=== PATIENT | male | born 1935 | race Caucasian/White ===

== ENCOUNTER 2016-09-28 18:21 | Inpatient (IN) ==
[2016-09-28 19:52] LABS: Basophils % 0.2 %; Hematocrit 34.3 % (37.5-50.1); Hemoglobin 11.6 g/dL (12.9-16.9); Immature Granulocytes % 0.4 % (0-4); Lymphocytes # 0.4 K/mcL (0.6-4.6); Lymphocytes % 4.5 %; Mean Corpuscular HGB Conc 33.8 g/dL (31.6-35.5); Mean Corpuscular Hemoglobin 28.7 pg (28.0-33.3); Mean Corpuscular Volume 84.9 fL (83.0-100.0); Mean Platelet Volume 9.5 fL (9.4-12.4); Monocytes # 0.8 K/mcL (0.0-1.3); Monocytes % 9.7 %; Neutrophils # 6.9 K/mcL (1.6-8.9); Platelet Count 124 K/mcL (140-400); Red Blood Count 4.04 M/mcL (4.19-5.50); Segmented Neutrophils % 85.2 %
[2016-09-28 20:07] LABS: Albumin 2.9 g/dL (3.5-5.0); Albumin/Globulin Ratio 0.9 (1.1-2.2); Bilirubin,Direct 0.4 mg/dL (0.0-0.5); Bilirubin,Indirect 0.4 mg/dL (0.0-1.2); Bilirubin,Total 0.8 mg/dL (0.2-1.2); Calcium 8.5 mg/dL (8.6-10.8); Globulin 3.2 g/dL (2.4-3.5); Potassium 3.9 mEq/L (3.5-4.5); Total Protein 6.1 g/dL (6.0-8.3)
[2016-09-28] MEDS ORDERED: Ondansetron 4 MG/2 ML VIAL IVP ONE (20:11)
[2016-09-28 21:41] LABS: Bilirubin,Urine Small (Negative); Blood,Urine Negative (Negative); Clarity,Urine Clear (Clear); Color,Urine Dark Yellow (Yellow); Glucose,Urine (UA) Normal (Normal); Ketones,Urine Trace mg/dL (Negative); Leukocyte Esterase,Urine Negative (Negative); Nitrite,Urine Negative (Negative); PH,Urine 5.5 pH Units (5.0-8.0); Protein,Urine Trace mg/dL (Neg-Trace); Specific Gravity,Urine > 1.030 (1.010-1.025); Urobilinogen,Urine Normal (Normal)
[2016-09-28 21:42] LABS: Bacteria,Urine None Seen per hpf (None-Few); Hyaline Casts,Urine None Seen per lpf (None-Few); Squamous Epithelial Cell,Urine Many per lpf (None-Few); WBC,Urine 0-3 per hpf (0-3)
[2016-09-28] MEDS ORDERED: 0.9 % Sodium Chloride 1,000 ML IVC SCH ×2 (22:30)
--- NOTE | 2016-09-28 22:59 | Emergency Department Note ---
Disposition Clinical Impression: Small bowel obstruction Disposition: Admitted As Inpatient Condition: Good Referrals: Jerel Mallory DO [Primary Care Provider] - Forms: Work/School Release, ED Satisfaction Letter Abdominal Pain HPI - General Chief Complaint: ED Abdominal Pain Stated Complaint: kidney pain Time Seen by Provider: 09/28/16 19:29 Source: patient, family Nursing Notes Reviewed: Yes Vital Signs Reviewed: Yes - History of Present Illness HPI Narrative: 72-year-old male who presents with complaints of abdominal pain. He actually was seen at [facility] 2 days ago and diagnosed with a kidney stone. His CT findings then showed concerning findings for ileus. He does provide me a copy of his CT imaging results from that hospital. This was a noncontrast study and is given strict recheck and return precautions. He is having increasing abdominal pain. History of previous bowel obstruction. He did have a small bowel resection approximately 20 years ago completed here at [place]. He denies fever, chills. Admits to reduce all movements recently. No vomiting but does have anorexia. Pain Scale: 5 - Related Data Home Medications Medication Instructions Recorded Confirmed Lisinopril [Zestril] 5 mg PO DAILY 09/28/16 09/28/16 Ondansetron HCl [Zofran] 4 mg PO Q4H PRN 09/28/16 09/28/16 Oxycodone HCl/Acetaminophen 1 each PO Q4H PRN 09/28/16 09/28/16 [Percocet 5-325 mg Tablet] Tamsulosin [Flomax] 0.4 mg PO DAILY 09/28/16 09/28/16 Vit C/Vit E/Lutein/Min/[place]-3 1 each PO DAILY 09/28/16 09/28/16 [Ocuvite Softgel] Allergies Allergy/AdvReac Type Severity Reaction Status Date / Time No Known Allergies Allergy Verified 09/28/16 18:53 All systems ED: reviewed and negative except as stated. Abdominal Pain PMH - Past Medical History Medical history: Reports: hypertension Male Surgical History: Reports: appendectomy Psychiatric history: Reports: no psych history - Social History Smoking status: Former smoker Alcohol use: Reports: none Drug use: Reports: none Physical Exam No acute distress TMs are clear bilaterally, extraocular muscle movements are normal, no scleral icterus noted Cardio vascular exam shows regular rate and rhythm no murmur rub or gallop Pulmonary exam shows no overt respiratory distress, tachypnea, rales, rhonchi, wheezing Abdominal exam shows a soft nontender abdomen with no signs of peritonitis Extremities show +2 peripheral pulses 4 extremities, normal neurovascular exam over the radian, median, ulnar nerves. Neurologic exam is without neurological deficit - General Limitations: no limitations General appearance: alert, in no apparent distress Course Vital Signs Temperature 97.6 F 09/28/16 18:48 Pulse Rate 101 09/28/16 18:48 Respiratory Rate 17 09/28/16 18:48 Blood Pressure 90/61 09/28/16 18:48 O2 Sat by Pulse Oximetry 87 L 09/28/16 18:48 Temperature 97.6 F 09/28/16 18:48 Pulse Rate 101 09/28/16 18:48 Respiratory Rate 17 09/28/16 18:48 Blood Pressure 90/61 09/28/16 18:48 O2 Sat by Pulse Oximetry 87 L 09/28/16 18:48 Oxygen Delivery Oxygen Delivery Room Air Abdominal Pain - MDM Narrative Medical decision making narrative: There is a kidney stone concurrently with acute kidney injury. This is small. It is likely this will pass. We will provide intravenous fluids, check urinalysis to rule out concurrent urinary tract infection. Will need inpatient urology consult if under versus persists. Secondary findings of small bowel obstruction with transition point. NG tube placed number emergency department with green gastric contents aspirated at approximately 200 mL. Discussed case with on-call surgery who request to admit to their service. He is stable without admission. NG is properly placed at time of admission. IV fluids have been continued. He received 2 L of IV fluids as well as maintenance of 100 mL per hour. Admitted in stable condition to the general surgery service. - Medical Records Medical records reviewed: Yes I reviewed the patient's medical records. - Lab Data Lab results reviewed: Yes I reviewed the patient's lab results. Result diagrams: 09/28/16 19:46 09/28/16 19:46 Lab Results 09/28/16 09/28/16 09/28/16 Range/Units 19:46 19:46 20:34 WBC 8.1 (4.3-11.1) K/mcL RBC 4.04 L (4.19-5.50) M/mcL Hgb 11.6 L (12.9-16.9) g/dL Hct 34.3 L (37.5-50.1) % MCV 84.9 (83.0-100.0) fL MCH 28.7 (28.0-33.3) pg MCHC 33.8 (31.6-35.5) g/dL RDW 14.0 (11.5-14.5) % Plt Count 124 L (140-400) K/mcL MPV 9.5 (9.4-12.4) fL Immature Gran % 0.4 (0-4) % Seg Neutrophils % 85.2 % Lymphocytes % 4.5 % Monocytes % 9.7 % Eosinophils % 0.0 % Basophils % 0.2 % Neutrophils # 6.9 (1.6-8.9) K/mcL Lymphocytes # 0.4 L (0.6-4.6) K/mcL Monocytes # 0.8 (0.0-1.3) K/mcL Eosinophils # 0.0 (0.0-0.6) K/mcL Basophils # 0.0 (0.0-0.2) K/mcL Sodium 133 L (136-145) mEq/L Potassium 3.9 (3.5-4.5) mEq/L Chloride 99 (98-109) mEq/L Carbon Dioxide 23 (19-29) mEq/L BUN 36 H (8-26) mg/dL Creatinine 2.31 H (0.72-1.25) mg/dL Est GFR ( Amer) 33 L (> 60) Est GFR (Non-Af Amer) 28 L (> 60) BUN/Creatinine Ratio 16 (6-26) Glucose 157 H (70-99) mg/dL Calculated Osmolality 288 (280-300) Lactic Acid 0.9 (0.5-2.2) mmol/L Calcium 8.5 L (8.6-10.8) mg/dL Total Bilirubin 0.8 (0.2-1.2) mg/dL Direct Bilirubin 0.4 (0.0-0.5) mg/dL Indirect Bilirubin 0.4 (0.0-1.2) mg/dL AST 14 (5-34) Units/L ALT 14 (0-55) Units/L Alkaline Phosphatase 86 (38-126) Units/L Serum Total Protein 6.1 (6.0-8.3) g/dL Albumin 2.9 L (3.5-5.0) g/dL Globulin 3.2 (2.4-3.5) g/dL Albumin/Globulin Ratio 0.9 L (1.1-2.2) Amylase 23 L (25-125) Units/L Lipase 6 L (8-78) Units/L Urine Color (Yellow) Urine Clarity (Clear) Urine pH (5.0-8.0) pH Units Ur Specific [place] (1.010-1.025) Urine Protein (Neg-Trace) mg/dL Urine Glucose (UA) (Normal) mg/dL Urine Ketones (Negative) mg/dL Urine Blood (Negative) Urine Nitrite (Negative) Urine Bilirubin (Negative) Urine Urobilinogen (Normal) mg/dL Ur Leukocyte Esterase (Negative) Urine Microscopic RBC (0-3) per hpf Urine Microscopic WBC (0-3) per hpf Ur Squamous Epith Cells (None-Few) per lpf Urine Bacteria (None-Few) per hpf Hyaline Casts (None-Few) per lpf Ur Culture Indicated? (NO) 09/28/16 Range/Units 21:20 WBC (4.3-11.1) K/mcL RBC (4.19-5.50) M/mcL Hgb (12.9-16.9) g/dL Hct (37.5-50.1) % MCV (83.0-100.0) fL MCH (28.0-33.3) pg MCHC (31.6-35.5) g/dL RDW (11.5-14.5) % Plt Count (140-400) K/mcL MPV (9.4-12.4) fL Immature Gran % (0-4) % Seg Neutrophils % % Lymphocytes % % Monocytes % % Eosinophils % % Basophils % % Neutrophils # (1.6-8.9) K/mcL Lymphocytes # (0.6-4.6) K/mcL Monocytes # (0.0-1.3) K/mcL Eosinophils # (0.0-0.6) K/mcL Basophils # (0.0-0.2) K/mcL Sodium (136-145) mEq/L Potassium (3.5-4.5) mEq/L Chloride (98-109) mEq/L Carbon Dioxide (19-29) mEq/L BUN (8-26) mg/dL Creatinine (0.72-1.25) mg/dL Est GFR ( Amer) (> 60) Est GFR (Non-Af Amer) (> 60) BUN/Creatinine Ratio (6-26) Glucose (70-99) mg/dL Calculated Osmolality (280-300) Lactic Acid (0.5-2.2) mmol/L Calcium (8.6-10.8) mg/dL Total Bilirubin (0.2-1.2) mg/dL Direct Bilirubin (0.0-0.5) mg/dL Indirect Bilirubin (0.0-1.2) mg/dL AST (5-34) Units/L ALT (0-55) Units/L Alkaline Phosphatase (38-126) Units/L Serum Total Protein (6.0-8.3) g/dL Albumin (3.5-5.0) g/dL Globulin (2.4-3.5) g/dL Albumin/Globulin Ratio (1.1-2.2) Amylase (25-125) Units/L Lipase (8-78) Units/L Urine Color Dark Yellow (Yellow) Urine Clarity Clear (Clear) Urine pH 5.5 (5.0-8.0) pH Units Ur Specific [place] > 1.030 H (1.010-1.025) Urine Protein Trace (Neg-Trace) mg/dL Urine Glucose (UA) Normal (Normal) mg/dL Urine Ketones Trace H (Negative) mg/dL Urine Blood Negative (Negative) Urine Nitrite Negative (Negative) Urine Bilirubin Small H (Negative) Urine Urobilinogen Normal (Normal) mg/dL Ur Leukocyte Esterase Negative (Negative) Urine Microscopic RBC 3-5 H (0-3) per hpf Urine Microscopic WBC 0-3 (0-3) per hpf Ur Squamous Epith Cells Many H (None-Few) per lpf Urine Bacteria None Seen (None-Few) per hpf Hyaline Casts None Seen (None-Few) per lpf Ur Culture Indicated? NO (NO)
[2016-09-29] MEDS ORDERED: *HR* Metoprolol 5 MG/5 ML VIAL IVP PRN (00:25)
[2016-09-29] MEDS ORDERED: Ondansetron 4 MG/2 ML VIAL IVP PRN ×2 (00:25→15:33)
[2016-09-29] MEDS: *HR* Morphine 2 MG/ML SYRINGE IVP PRN ×4 (00:32→09:02)
[2016-09-29] MEDS: 0.9 % Sodium Chloride 1,000 ML IVC SCH ×4 (01:06→19:53)
[2016-09-29 06:10] LABS: Basophils % 0.1 %; Eosinophils % 0.1 %; Hematocrit 34.2 % (37.5-50.1); Hemoglobin 11.1 g/dL (12.9-16.9); Immature Granulocytes % 0.1 % (0-4); Lymphocytes # 0.7 K/mcL (0.6-4.6); Lymphocytes % 10.1 %; Mean Corpuscular HGB Conc 32.5 g/dL (31.6-35.5); Mean Corpuscular Volume 86.4 fL (83.0-100.0); Mean Platelet Volume 9.7 fL (9.4-12.4); Monocytes # 0.8 K/mcL (0.0-1.3); Monocytes % 11.4 %; Neutrophils # 5.3 K/mcL (1.6-8.9); Platelet Count 123 K/mcL (140-400); Red Blood Count 3.96 M/mcL (4.19-5.50); Segmented Neutrophils % 78.2 %
[2016-09-29 06:21] LABS: Calcium 8.1 mg/dL (8.6-10.8); Phosphorous 3.9 mg/dL (2.3-4.7); Potassium 4.3 mEq/L (3.5-4.5)
[2016-09-29] MEDS ORDERED: Naloxone 0.4 MG/ML INJ IVP PRN ×2 (08:57→15:33)
[2016-09-29] MEDS ORDERED: Pantoprazole 40 MG VIAL IVP SCH (09:00)
--- NOTE | 2016-09-29 09:30 | Urology - Consult Note ---
Date of Encounter: 09/29/16 Time of Encounter: 09:28 - Assessment and Plan (1) Right distal ureteral calculus Current Visit: Yes Status: Acute Assessment and plan: 80-year-old man presents with history of a bowel obstruction and a right ureteral stone. I personally reviewed the CT scan with him and his family. There is evidence of a distal right ureteral stone and hydronephrosis. He is still having severe pain. He says the pain is located in the right flank and radiates to the groin. He feels bloated and an NG tube has been placed. He is currently admitted. He reports that his pain has not significantly improved. His creatinine has worsened. With this in mind, I recommend proceeding with a right ureteroscopy, laser lithotripsy, and stent placement. I informed him of the risks of the surgery which include but are not limited to bleeding, infection, injury to other structures, need for further procedures, stent irritation, need for open repair, need for nephrostomy tube, and the risk of anesthesia. He is willing to proceed. Urology CN:HPI Consult date: 09/29/16 Reason for consult Urology: Hydronephrosis Requesting physician: Amy Kolb History of present illness: 80 year old man presents with right flank pain and abdominal distension. He was seen at [facility] and a CT scan showed a 2mm right distal ureteral stone. His creatinine was 1.21 at that time. His pain worsened and he came to [place]. Repeat CT scan showed that the stone hadn't moved. There is hydronephrosis and his creatinine has worsened. He now has an NG tube secondary to his bowel obstruction. Past Med Surg Social Fam HX - Past Medical History Medical history: hypertension Psychiatric history: no psych history - Social History Smoking Status: Former smoker Smokeless Tobacco Status: No Alcohol use: none Drug use: none - Family History Mother Hx Family Cancer: Yes Medications and Allergies Lisinopril [Zestril] 5 mg PO DAILY 09/28/16 [History] Ondansetron HCl [Zofran] 4 mg PO Q4H PRN 09/28/16 [History] Oxycodone HCl/Acetaminophen [Percocet 5-325 mg Tablet] 1 each PO Q4H PRN [History] Tamsulosin [Flomax] 0.4 mg PO DAILY 09/28/16 [History] Vit C/Vit E/Lutein/Min/[place]-3 [Ocuvite Softgel] 1 each PO DAILY 09/28/16 [ History] Allergies No Known Allergies Allergy (Verified 09/28/16 18:53) Review of Systems - Constitutional no chills, no fever(s) - EENT Nose, mouth and throat: no dizziness - Cardiovascular no chest pain - Respiratory no dyspnea - Gastrointestinal no nausea, no vomiting - Genitourinary flank pain, no hematuria - Musculoskeletal no back pain - Integumentary no erythema, no rash - Neurological no weakness - Psychiatric no suicidal ideation - Hematologic/Lymphatic no easy bleeding - Allergic/Immunologic no wheezing Exam Initial Vital Signs Temp Pulse Resp BP Pulse Ox 97.6 F 101 17 90/61 87 L 09/28/16 18:48 09/28/16 18:48 09/28/16 18:48 09/28/16 18:48 09/28/16 18:48 - General physical appearance Present: well developed, well nourished, moderate distress - Eyes Absent: icteric - ENT Present: normal nares - Neck Present: trachea midline - Respiratory Present: normal respiratory effort - Cardiovascular Cardiovascular exam IM: RRR - Abdomen Abdomen: Present: distended Urology Results - Labs 09/29/16 05:44 09/29/16 05:44 Abnormal lab results RBC 3.96 M/mcL (4.19-5.50) L 09/29/16 05:44 Hgb 11.1 g/dL (12.9-16.9) L 09/29/16 05:44 Hct 34.2 % (37.5-50.1) L 09/29/16 05:44 Plt Count 123 K/mcL (140-400) L 09/29/16 05:44 Sodium 133 mEq/L (136-145) L 09/29/16 05:44 BUN 34 mg/dL (8-26) H 09/29/16 05:44 Creatinine 2.09 mg/dL (0.72-1.25) H 09/29/16 05:44 Est GFR ( Amer) 37 (> 60) L 09/29/16 05:44 Est GFR (Non-Af Amer) 31 (> 60) L 09/29/16 05:44 Glucose 113 mg/dL (70-99) H 09/29/16 05:44 POC Glucose 105 (58-89) H 09/29/16 05:22 Calcium 8.1 mg/dL (8.6-10.8) L 09/29/16 05:44 Albumin 2.9 g/dL (3.5-5.0) L 09/28/16 19:46 Albumin/Globulin Ratio 0.9 (1.1-2.2) L 09/28/16 19:46 Amylase 23 Units/L (25-125) L 09/28/16 19:46 Lipase 6 Units/L (8-78) L 09/28/16 19:46 Ur Specific [place] > 1.030 (1.010-1.025) H 09/28/16 21:20 Urine Ketones Trace mg/dL (Negative) H 09/28/16 21:20 Urine Bilirubin Small (Negative) H 09/28/16 21:20 Urine Microscopic RBC 3-5 per hpf (0-3) H 09/28/16 21:20 Ur Squamous Epith Cells Many per lpf (None-Few) H 09/28/16 21:20 Diabetes panel 09/29/16 Range/Units 05:44 Sodium 133 L (136-145) mEq/L Potassium 4.3 (3.5-4.5) mEq/L Chloride 101 (98-109) mEq/L Carbon Dioxide 22 (19-29) mEq/L BUN 34 H (8-26) mg/dL Creatinine 2.09 H (0.72-1.25) mg/dL Glucose 113 H (70-99) mg/dL Calcium 8.1 L (8.6-10.8) mg/dL Calcium panel 09/29/16 Range/Units 05:44 Calcium 8.1 L (8.6-10.8) mg/dL Phosphorus 3.9 (2.3-4.7) mg/dL Pituitary panel 09/29/16 Range/Units 05:44 Sodium 133 L (136-145) mEq/L Potassium 4.3 (3.5-4.5) mEq/L Chloride 101 (98-109) mEq/L Carbon Dioxide 22 (19-29) mEq/L BUN 34 H (8-26) mg/dL Creatinine 2.09 H (0.72-1.25) mg/dL Glucose 113 H (70-99) mg/dL Calcium 8.1 L (8.6-10.8) mg/dL Adrenal panel 09/29/16 Range/Units 05:44 Sodium 133 L (136-145) mEq/L Potassium 4.3 (3.5-4.5) mEq/L Chloride 101 (98-109) mEq/L Carbon Dioxide 22 (19-29) mEq/L BUN 34 H (8-26) mg/dL Creatinine 2.09 H (0.72-1.25) mg/dL Glucose 113 H (70-99) mg/dL Calcium 8.1 L (8.6-10.8) mg/dL All other labs normal. - Imaging CT scan - abdomen: report reviewed, image reviewed CT scan - pelvis: report reviewed, image reviewed Consult Discharge Plan - Plan Referrals: Jerel Mallory DO [Primary Care Provider] -
[2016-09-29] MEDS ORDERED: ceFAZolin 2,000 MG in D5% in Water (Mini-Bag+) 100 ML IVPB ONE (09:34)
[2016-09-29] MEDS ORDERED: *HR* Morphine 2 MG/ML SYRINGE IVP PRN (09:37)
[2016-09-29] MEDS ORDERED: Chloraseptic Spray 177 ML BOTTLE MM PRN (09:42)
--- NOTE | 2016-09-29 09:51 | General Surg History&Physical ---
<Amy Kolb Carlota - Last Filed: 09/29/16 12:22> Assessment and Plan (1) BPH (benign prostatic hyperplasia) Current Visit: Yes Status: Acute The assessment and plan as outlined above was discussed with the patient and/or family members who expressed understanding and agreement. All questions were answered. will hold flomax until tolerates po again Qualifiers: Prostatic enlargement morphology: unspecified morphology Lower urinary tract symptom presence: presence of symptoms unspecified Qualified Code(s): N40.0 - Benign prostatic hyperplasia without lower urinary tract symptoms (2) HTN (hypertension) Current Visit: Yes Status: Acute The assessment and plan as outlined above was discussed with the patient and/or family members who expressed understanding and agreement. All questions were answered. Qualifiers: Hypertension type: essential hypertension Qualified Code(s): I10 - Essential (primary) hypertension (3) Right distal ureteral calculus Current Visit: Yes Status: Acute The assessment and plan as outlined above was discussed with the patient and/or family members who expressed understanding and agreement. All questions were answered. (4) Small bowel obstruction Current Visit: Yes Status: Acute SBO versus ileus patient with few bowel sounds, continue conservative management, ngt decompression, ivf hydration, strict I/O's bowel rest, npo, prn pain control serial abdominal exams kub shows ngt in correct position The assessment and plan as outlined above was discussed with the patient and/or family members who expressed understanding and agreement. All questions were answered. (5) Acute kidney injury Current Visit: Yes Status: Acute likely due to dehydration and more likely due to the right ureteral stone and hydronephrosis continue IVF hydration, assess Cr tomorrow The assessment and plan as outlined above was discussed with the patient and/or family members who expressed understanding and agreement. All questions were answered. History of Present Illness HPI: Mr. Wang is a 80 year old male with R side back pain described as dull and sometimes stabbing in nature. This began last saturday. He had nausea and emesis saturday as well. He went to [facility] and was given antiemetics and a CT scan was done and he was discharged home. His symptoms havent improved and he has been tolerating some liquids. He Came to the ED last night due to continued symptoms. He had flatus yesterday, last bm was saturday. He had a small bowel resection over 20 yrs ago but not reallyl sure why. Past Med Surg Social Fam HX - Past Medical History Source: patient Medical history: other (BPH) - Past Surgical History Surgical History: other (small bowel resection) Medications and Allergies Lisinopril [Zestril] 5 mg PO DAILY 09/28/16 [History] Ondansetron HCl [Zofran] 4 mg PO Q4H PRN 09/28/16 [History] Oxycodone HCl/Acetaminophen [Percocet 5-325 mg Tablet] 1 each PO Q4H PRN [History] Tamsulosin [Flomax] 0.4 mg PO DAILY 09/28/16 [History] Vit C/Vit E/Lutein/Min/[place]-3 [Ocuvite Softgel] 1 each PO DAILY 09/28/16 [ History] Allergies No Known Allergies Allergy (Verified 09/28/16 18:53) Review of Systems All systems PM: reviewed and no additional remarkable complaints except as stated All systems PM: A 10-system review of systems was performed and is negative for pertinent findings except as documented above in the HPI. General Surgery Exam Initial Vital Signs Temp Pulse Resp BP Pulse Ox 97.6 F 101 17 90/61 87 L 09/28/16 18:48 09/28/16 18:48 09/28/16 18:48 09/28/16 18:48 09/28/16 18:48 - General physical appearance well developed, well nourished, moderate distress - Eyes PERRL, normal ocular movement - ENT atraumatic, normocephalic - Neck trachea midline - Respiratory normal expansion, clear to auscultation - Cardiovascular Cardiovascular exam: Present: RRR, no murmurs/rubs/gallops - Abdomen Abdomen general surgery: Present: soft, distended, tender. Absent: bowel sounds present - Integumentary Integumentary general surgery: Present: warm and dry, no abnormal pigmentation - Neurologic Present: CN 2-12 grossly intact - Musculoskeletal Present: normal posture - Psychiatric Psychiatric general surgery: Present: A&Ox3, oriented to time, speech is normal Results - Labs 09/29/16 05:44 09/29/16 05:44 Vital Signs Temp Pulse Resp BP Pulse Ox 09/29/16 10:39 99.1 F 83 16 108/67 91 L 09/29/16 06:50 98.2 F 89 16 124/76 95 09/29/16 04:39 98.6 F 76 18 132/81 93 L 09/29/16 00:13 98.7 F 86 18 157/82 93 L 09/28/16 23:27 20 126/78 09/28/16 22:35 86 20 121/75 92 L 09/28/16 18:48 97.6 F 101 17 90/61 87 L Intake and Output 09/28/16 09/29/16 09/29/16 23:59 07:59 15:59 Intake Total 1000 / 1000 0 / 0 Output Total 500 / 500 275 / 275 1050 / 1050 Balance 500 / 500 -275 / -275 -1050 / -1050 Intake: IV Fluids 1000 / 1000 0.9 % Sodium Chloride 1, 1000 / 1000 000 ML @ 3750 mls/hr IVC .Q16M [facility] Rx#:[id number] Oral 0 / 0 Output: Urine 275 / 275 Gastric Drainage 500 / 500 1050 / 1050 Right Nare 200 / 200 400 / 400 Other: Meal NPO Percent of Meal Consumed 0% Stool Characteristics Normal for Patient Stool Color Brown Weight 88.451 kg 91 kg Blood Glucose* 105 Patient Weight 09/29/16 23:59 Weight 91 kg Short CBC 09/29/16 09/28/16 Range/Units 05:44 19:46 WBC 6.7 8.1 (4.3-11.1) K/mcL Hgb 11.1 L 11.6 L (12.9-16.9) g/dL Hct 34.2 L 34.3 L (37.5-50.1) % Plt Count 123 L 124 L (140-400) K/mcL Neutrophils # 5.3 6.9 (1.6-8.9) K/mcL BMP 09/29/16 09/28/16 Range/Units 05:44 19:46 Sodium 133 L 133 L (136-145) mEq/L Potassium 4.3 3.9 (3.5-4.5) mEq/L Chloride 101 99 (98-109) mEq/L Carbon Dioxide 22 23 (19-29) mEq/L BUN 34 H 36 H (8-26) mg/dL Creatinine 2.09 H 2.31 H (0.72-1.25) mg/dL Glucose 113 H 157 H (70-99) mg/dL Calcium 8.1 L 8.5 L (8.6-10.8) mg/dL Liver Function 09/28/16 Range/Units 19:46 Total Bilirubin 0.8 (0.2-1.2) mg/dL Direct Bilirubin 0.4 (0.0-0.5) mg/dL AST 14 (5-34) Units/L ALT 14 (0-55) Units/L Alkaline Phosphatase 86 (38-126) Units/L Albumin 2.9 L (3.5-5.0) g/dL Urine 09/28/16 Range/Units 21:20 Urine Color Dark Yellow (Yellow) Urine Clarity Clear (Clear) Urine pH 5.5 (5.0-8.0) pH Units Ur Specific [place] > 1.030 H (1.010-1.025) Urine Protein Trace (Neg-Trace) mg/dL Urine Glucose (UA) Normal (Normal) mg/dL - Imaging CT scan - abdomen: report reviewed, image reviewed CT scan - pelvis: report reviewed, image reviewed - Attending Attestation I examined this patient and my medical decision-making was reviewed with the INCINERATOR PLANT LABORER/PA/Advanced Practice Nurse/Resident Physician. I agree with the documented findings, disposition and treatment plan as described except to the extent set forth below. <Freddy Zeng - Last Filed: 09/29/16 12:27> Date of Encounter: 09/29/16 Time of Encounter: 09:30 Assessment and Plan (1) Small bowel obstruction Current Visit: Yes Status: Acute Concerns for SBO on CT. Likely partial SBO as patient passing gas and has hypoactive bowel sounds. Conservative measures at this time: NPO- bowel rest NG to LIWS IV fluids @ 130ml/hr supportive care/pain control (2) Right distal ureteral calculus Current Visit: Yes Status: Acute with [place]; Cr 1.21 (09/25/16)>2.31>2.09. Urology consulted, Dr. Garay has seen patient. Recommending right ureteroscopy, laser lithotripsy, and stent placement. (3) HTN (hypertension) Current Visit: Yes Status: Acute BP 108/67 this AM Continue lopressor 5mg Q6H prn while NPO. Qualifiers: Hypertension type: essential hypertension Qualified Code(s): I10 - Essential (primary) hypertension History of Present Illness Chief complaint: R flank pain HPI: Mr. Wang is a 80 year old male presented to the ED with right flank pain and abdominal distention. Mr. Wang was seen night at [facility], CT (noncontrast) showed 2mm right distal ureteral stone and concerns for ileus. He describes his pain as constant, but stabbing at times, located on his R side and into his back. His pain has not improved any, so he presented to [facility] last night. Patient admits to flatus this AM, but no BM since (09/25/16). States he has one episode of vomiting on Saturday, none since. History of bowel obstruction 20 + years ago (requiring resection of approx 18inches per family's report) small bowel resection performed here at [facility]; recent CT notes area of anastamosis. Past Med Surg Social Fam HX - Past Medical History Medical history: hypertension Psychiatric history: no psych history - Past Surgical History Surgical History: colectomy (20+ years ago) - Social History Smoking Status: Former smoker Smokeless Tobacco Status: No Alcohol use: none Drug use: none - Family History Mother Hx Family Cancer: Yes Review of Systems All systems PM: A 10-system review of systems was performed and is negative for pertinent findings except as documented above in the HPI. - Constitutional no chills, no fever(s) - EENT Nose, mouth and throat: no dysphagia - Cardiovascular no chest pain - Respiratory no dyspnea - Gastrointestinal vomiting (once 4 days ago), no diarrhea - Genitourinary flank pain, no hematuria - Musculoskeletal no muscle weakness - Integumentary no erythema, no rash - Neurological no confusion, no focal weakness - Hematologic/Lymphatic no easy bleeding General Surgery Exam Initial Vital Signs Temp Pulse Resp BP Pulse Ox 97.6 F 101 17 90/61 87 L 09/28/16 18:48 09/28/16 18:48 09/28/16 18:48 09/28/16 18:48 09/28/16 18:48 - General physical appearance well developed, well nourished, moderate distress - Eyes normal ocular movement - ENT dry mucosa, atraumatic, normocephalic - Neck trachea midline - Respiratory normal respiratory effort, clear to auscultation - Cardiovascular Cardiovascular exam: Present: RRR - Abdomen Abdomen general surgery: Present: bowel sounds present (hypoactive), soft, non tender (abdomen is nontender), distended, tender (R flank and R CVA tenderness on palpation) - Integumentary Integumentary general surgery: Present: warm and dry, no abnormal pigmentation - Neurologic Present: CN 2-12 grossly intact - Psychiatric Psychiatric general surgery: Present: appropriate, oriented to person, oriented to place, oriented to time, speech is normal, memory intact Results - Labs 09/29/16 05:44 09/29/16 05:44 Abnormal lab results RBC 3.96 M/mcL (4.19-5.50) L 09/29/16 05:44 Hgb 11.1 g/dL (12.9-16.9) L 09/29/16 05:44 Hct 34.2 % (37.5-50.1) L 09/29/16 05:44 Plt Count 123 K/mcL (140-400) L 09/29/16 05:44 Sodium 133 mEq/L (136-145) L 09/29/16 05:44 BUN 34 mg/dL (8-26) H 09/29/16 05:44 Creatinine 2.09 mg/dL (0.72-1.25) H 09/29/16 05:44 Est GFR ( Amer) 37 (> 60) L 09/29/16 05:44 Est GFR (Non-Af Amer) 31 (> 60) L 09/29/16 05:44 Glucose 113 mg/dL (70-99) H 09/29/16 05:44 POC Glucose 105 (58-89) H 09/29/16 05:22 Calcium 8.1 mg/dL (8.6-10.8) L 09/29/16 05:44 Albumin 2.9 g/dL (3.5-5.0) L 09/28/16 19:46 Albumin/Globulin Ratio 0.9 (1.1-2.2) L 09/28/16 19:46 Amylase 23 Units/L (25-125) L 09/28/16 19:46 Lipase 6 Units/L (8-78) L 09/28/16 19:46 Ur Specific [place] > 1.030 (1.010-1.025) H 09/28/16 21:20 Urine Ketones Trace mg/dL (Negative) H 09/28/16 21:20 Urine Bilirubin Small (Negative) H 09/28/16 21:20 Urine Microscopic RBC 3-5 per hpf (0-3) H 09/28/16 21:20 Ur Squamous Epith Cells Many per lpf (None-Few) H 09/28/16 21:20 Diabetes panel 09/29/16 Range/Units 05:44 Sodium 133 L (136-145) mEq/L Potassium 4.3 (3.5-4.5) mEq/L Chloride 101 (98-109) mEq/L Carbon Dioxide 22 (19-29) mEq/L BUN 34 H (8-26) mg/dL Creatinine 2.09 H (0.72-1.25) mg/dL Glucose 113 H (70-99) mg/dL Calcium 8.1 L (8.6-10.8) mg/dL Calcium panel 09/29/16 Range/Units 05:44 Calcium 8.1 L (8.6-10.8) mg/dL Phosphorus 3.9 (2.3-4.7) mg/dL Pituitary panel 09/29/16 Range/Units 05:44 Sodium 133 L (136-145) mEq/L Potassium 4.3 (3.5-4.5) mEq/L Chloride 101 (98-109) mEq/L Carbon Dioxide 22 (19-29) mEq/L BUN 34 H (8-26) mg/dL Creatinine 2.09 H (0.72-1.25) mg/dL Glucose 113 H (70-99) mg/dL Calcium 8.1 L (8.6-10.8) mg/dL Adrenal panel 09/29/16 Range/Units 05:44 Sodium 133 L (136-145) mEq/L Potassium 4.3 (3.5-4.5) mEq/L Chloride 101 (98-109) mEq/L Carbon Dioxide 22 (19-29) mEq/L BUN 34 H (8-26) mg/dL Creatinine 2.09 H (0.72-1.25) mg/dL Glucose 113 H (70-99) mg/dL Calcium 8.1 L (8.6-10.8) mg/dL All other labs normal.
[2016-09-29] MEDS ORDERED: ceFAZolin 2,000 MG in D5% in Water 100 ML IVPB ONE (12:00)
[2016-09-29] MEDS ORDERED: *HR* HYDROmorphone (PF) 1 MG/ML SYRINGE IVP PRN (13:45)
[2016-09-29] MEDS ORDERED: *HR* Promethazine 25 MG/ML VIAL IVP PRN (13:45)
[2016-09-29] MEDS ORDERED: 0.9 % Sodium Chloride 1,000 ML IVC SCH (13:45)
--- NOTE | 2016-09-29 13:49 | Anesthesia Evaluation PreOp ---
Date of Encounter: 09/29/16 Time of Encounter: 13:47 - Past History Planned Operation: r ureteroscopy, laser lithotx Cardiac History: HTN Pulmonary History: Former smoker ANALYSIS MANAGER History: Denies Any Significant HX Other Medical History: Renal (r ureteral obstruction, worsening creat.), Other ( bowel obst, ngt, followed by surgery) Anesthesia History: No Prior Anesthetic Complications, Past Anesthesia Alcohol Use: none Drug use: none Medications and Allergies Lisinopril [Zestril] 5 mg PO DAILY 09/28/16 [History] Ondansetron HCl [Zofran] 4 mg PO Q4H PRN 09/28/16 [History] Oxycodone HCl/Acetaminophen [Percocet 5-325 mg Tablet] 1 each PO Q4H PRN [History] Tamsulosin [Flomax] 0.4 mg PO DAILY 09/28/16 [History] Vit C/Vit E/Lutein/Min/[place]-3 [Ocuvite Softgel] 1 each PO DAILY 09/28/16 [ History] Allergies No Known Allergies Allergy (Verified 09/28/16 18:53) - Meds/Allergy Pre-op Review Medications Reviewed: Yes Allergies Reviewed: Yes Beta Blockers on Current Med List: No Anesthesia Results - Labs 09/29/16 05:44 09/29/16 05:44 - Imaging EKG: pending Anesthesia Exam Vital Signs/O2 Sat/Glucose, Most Current Temp Pulse Resp BP Pulse Ox 09/29/16 10:39 99.1 F 83 16 108/67 91 L Height: 1.88 Weight: 91 NPO (# of Hours): >8 - HEENT Pupil (Motor): Pupils equal, EOMI Mallampati: II Teeth: Poor dentition Oral Opening: Greater than 3 - ANALYSIS MANAGER LOC: Oriented ANALYSIS MANAGER Motor: Normal RUE, Normal LUE, Normal RLE, Normal LLE, Normal Face ANALYSIS MANAGER Sensory: Normal: RUE, LUE, RLE, LLE, Face - Cardiac Rhythm: Regular Murmur: None - Pulmonary Breath Sounds: bilateral Clear Respiratory Effort: Symmetrical Anesthesia Assess/Plan ASA Score: 3 (age>70) Modified [place] Scale for Level of Consciousness: Cooperative, oriented, and tranquil Anesthetic Plan: General Monitoring Plan: Standard Monitors Recovery Plan: PACU
[2016-09-29] MEDS ORDERED: *HR* Propofol 200 MG/20 ML VIAL IVP ONE (14:29)
[2016-09-29] MEDS ORDERED: *HR* FentaNYL (PF) 100 MCG/2 ML VIAL ONE (14:29)
[2016-09-29] MEDS ORDERED: *HR* Succinylcholine 200 MG/10 ML VIAL IVP ONE (14:30)
[2016-09-29] MEDS ORDERED: Dexamethasone 4 MG/ML VIAL ONE (14:30)
[2016-09-29] MEDS ORDERED: Lidocaine -MPF 2% 2 ML VIAL ONE (14:30)
[2016-09-29] MEDS ORDERED: Ondansetron 4 MG/2 ML VIAL ONE (14:30)
--- NOTE | 2016-09-29 15:27 | Operative Note ---
Date of procedure: 09/29/16 Pre-op diagnosis: Right ureteral stone Post-op diagnosis: same Procedure: Right ureteroscopy, basket stone extraction, right ureteral stent placement. Implants: 4.8 [place]vor[place] by 26 cm double-J stent. Complications: none Anesthesia: TERRI Surgeon: Ilya Garay Estimated blood loss (cc): 1 Specimen: Right renal stone Condition: stable Disposition: PACU Procedure in Detail: Indications: Mr. Wang is a 80-year-old male who has a history of nephrolithiasis. He is admitted for a bowel obstruction and upon CT scanning there was evidence of a 1- 2 mm distal right ureteral stone as well as a 2 mm stone within his right kidney. He had an elevation in his creatinine. He was having persistent flank pain. He elected to undergo a right ureteroscopy, laser lithotripsy, and basket stone extraction with stent placement. He was aware of the risks of the procedure including but not limited to bleeding, infection, injury to other structures, need for further procedures, stent irritation, need for nephrostomy tube, need for open repair, risks otherwise unforeseen, and the risk of anesthesia. He is willing to proceed. Procedure in Detail: After informed consent was obtained the patient was brought back to the operating room and placed in supine position. A time out was performed. General anesthesia was administered and an endotracheal tube was placed. He was then placed in the lithotomy position. He was prepped and draped in the usual sterile fashion. Cystoscopy was performed. The anterior urethra was normal. There was no evidence of bladder tumors. The ureteral orifices were in the normal orthotopic position. There was no duplication of the ureteral orifices. There was some stone debris within the bladder. The sensor wire was placed in the right ureteral orifice. The wire was then brought up into the kidney under fluoroscopic guidance. The ureter was dilated with the 8/10 Ivorian ureteral dilator. The dilator was removed. I then inserted the semirigid ureteroscope. No stone was seen in the distal ureter. The scope was brought all the way into the proximal ureter and no stone was seen further up. The ZIP wire was then placed. The scope was then removed. The flexible ureteroscope was then advanced into the kidney. One stone was seen in the lower pole calyx. This stone was grasped with a basket and removed intact. A 4.8 [place]vor[place] by 26cm JJ stent was then placed. The wilmae strings were left intact and secured to the penis with a Tegaderm. The patient was then awakened from general anesthesia and brought to recovery room in good condition. All sponge, needle, and instrument counts were correct.
--- NOTE | 2016-09-29 16:03 | Anesthesia Evaluation Post Op ---
Date of Encounter: 09/29/16 Time of Encounter: 16:01 - Vital Signs Vital Signs: vss - Lungs Lungs: Clear Ascult./Percussion - Airway Airway: Non-obstructed - Cardiovascular Baseline Rhythm - Mental Status Mental Status: Alert & Oriented, Answers Appropriately - Pain Pain Scale used: [place] (Faces) - Nausea Vomiting Nausea Vomiting: Not Present - Discharge PostOp Status: Transfer Patient to floor
[2016-09-29] MEDS ORDERED: *HR* Heparin 5,000 UNIT/ML VIAL SQ SCH (19:00)
[2016-09-29] MEDS: *HR* Heparin 5,000 UNIT/ML VIAL SQ SCH (19:54)
[2016-09-30] MEDS: 0.9 % Sodium Chloride 1,000 ML IVC SCH ×3 (03:40→21:21)
[2016-09-30 04:39] LABS: Basophils % 0.2 %; Hematocrit 31.1 % (37.5-50.1); Hemoglobin 10.2 g/dL (12.9-16.9); Immature Granulocytes % 0.3 % (0-4); Lymphocytes # 0.4 K/mcL (0.6-4.6); Lymphocytes % 7.1 %; Mean Corpuscular HGB Conc 32.8 g/dL (31.6-35.5); Mean Corpuscular Hemoglobin 28.5 pg (28.0-33.3); Mean Corpuscular Volume 86.9 fL (83.0-100.0); Mean Platelet Volume 9.8 fL (9.4-12.4); Monocytes # 0.5 K/mcL (0.0-1.3); Monocytes % 8.2 %; Neutrophils # 4.9 K/mcL (1.6-8.9); Platelet Count 128 K/mcL (140-400); Red Blood Count 3.58 M/mcL (4.19-5.50); Segmented Neutrophils % 84.2 %
[2016-09-30 04:49] LABS: BUN/Creatinine Ratio 22 (6-26); Blood Urea Nitrogen 30 mg/dL (8-26); Calcium 8.2 mg/dL (8.6-10.8); Carbon Dioxide 19 mEq/L (19-29); Chloride 108 mEq/L (98-109); Glucose 97 mg/dL (70-99); Osmolality,Calculated 290 (280-300); Phosphorous 4.1 mg/dL (2.3-4.7); Potassium 4.9 mEq/L (3.5-4.5); Sodium 137 mEq/L (136-145); eGFR For African Americans > 60 (> 60); eGFR For Non-African Americans 52 (> 60)
[2016-09-30] MEDS: *HR* Heparin 5,000 UNIT/ML VIAL SQ SCH ×2 (06:04→20:37)
[2016-09-30] MEDS: Pantoprazole 40 MG VIAL IVP SCH (08:21)
--- NOTE | 2016-09-30 08:43 | Urology Progress Note ---
Date of Encounter: 09/30/16 Time of Encounter: 08:42 - Assessment and Plan (1) Right distal ureteral calculus Current Visit: Yes Status: Acute Assessment and plan: Stone had passed in the ureter. The renal stone was removed. Doing well, but urine is somewhat bloody. Will monitor for now. If hematuria persists, consider holding subcu heparin. will follow along. Diet per general surgery. Progress Note Narrative: Doing well after right ureteroscopy, stone extraction and stent placement. He is voiding well. Urine is somewhat bloody. Creatinine improved. Objective Initial Vital Signs Temp Pulse Resp BP Pulse Ox 97.6 F 101 17 90/61 87 L 09/28/16 18:48 09/28/16 18:48 09/28/16 18:48 09/28/16 18:48 09/28/16 18:48 - General physical appearance Present: well developed, well nourished, no distress - Respiratory Present: normal respiratory effort - Abdomen Present: distended - Labs 09/30/16 04:07 09/30/16 04:07 Diabetes panel 09/30/16 Range/Units 04:07 Sodium 137 (136-145) mEq/L Potassium 4.9 H (3.5-4.5) mEq/L Chloride 108 (98-109) mEq/L Carbon Dioxide 19 (19-29) mEq/L BUN 30 H (8-26) mg/dL Creatinine 1.34 H (0.72-1.25) mg/dL Glucose 97 (70-99) mg/dL Calcium 8.2 L (8.6-10.8) mg/dL Calcium panel 09/30/16 Range/Units 04:07 Calcium 8.2 L (8.6-10.8) mg/dL Phosphorus 4.1 (2.3-4.7) mg/dL Pituitary panel 09/30/16 Range/Units 04:07 Sodium 137 (136-145) mEq/L Potassium 4.9 H (3.5-4.5) mEq/L Chloride 108 (98-109) mEq/L Carbon Dioxide 19 (19-29) mEq/L BUN 30 H (8-26) mg/dL Creatinine 1.34 H (0.72-1.25) mg/dL Glucose 97 (70-99) mg/dL Calcium 8.2 L (8.6-10.8) mg/dL Adrenal panel 09/30/16 Range/Units 04:07 Sodium 137 (136-145) mEq/L Potassium 4.9 H (3.5-4.5) mEq/L Chloride 108 (98-109) mEq/L Carbon Dioxide 19 (19-29) mEq/L BUN 30 H (8-26) mg/dL Creatinine 1.34 H (0.72-1.25) mg/dL Glucose 97 (70-99) mg/dL Calcium 8.2 L (8.6-10.8) mg/dL - VTE Documentation of Mechanical Device: Intermittent pneumatic compression device Consult Discharge Plan - Plan Referrals: Jerel Mallory DO [Primary Care Provider] -
[2016-09-30] MEDS: *HR* Morphine 2 MG/ML SYRINGE IVP PRN ×4 (10:44→17:32)
--- NOTE | 2016-09-30 17:27 | General Surgery Progress Note ---
<Freddy Zeng - Last Filed: 09/30/16 17:27> Date of Encounter: 09/30/16 Time of Encounter: 11:15 - Assessment and Plan (1) Small bowel obstruction Current Visit: Yes Status: Acute (2) Right distal ureteral calculus Current Visit: Yes Status: Acute (3) HTN (hypertension) Current Visit: Yes Status: Acute Qualifiers: Hypertension type: essential hypertension Qualified Code(s): I10 - Essential (primary) hypertension Subjective Patient reports: no new complaints, still having pain, flatus, no bowel movement , afebrile Objective Vital Signs - Last 8 Hours Temp Pulse Resp BP Pulse Ox 09/30/16 14:50 98.5 F 87 18 164/78 95 09/30/16 11:02 97.7 F 78 16 151/82 94 L Intake and Output 09/30/16 09/30/16 09/30/16 07:59 15:59 23:59 Intake Total 1000 / 1000 1000 / 1000 Output Total 925 / 925 400 / 400 Balance 75 / 75 600 / 600 Intake: IV Fluids 1000 / 1000 1000 / 1000 0.9 % Sodium Chloride 1, 1000 / 1000 1000 / 1000 000 ML @ 130 mls/hr IVC . [id number] [facility] Rx#:[id number] Oral 0 / 0 Output: Urine 575 / 575 400 / 400 Gastric Drainage 350 / 350 Other: Meal npo Weight 91.4 kg Blood Glucose* 93 79 Patient Weight 09/30/16 23:59 Weight 91.4 kg - General physical appearance well developed, well nourished - Eyes normal ocular movement - ENT normal mucosa, atraumatic, normocephalic - Neck Neck exam: trachea midline - Respiratory normal respiratory effort, clear to auscultation - Cardiovascular Cardiovascular exam: Present: RRR - Labs 09/30/16 04:07 09/30/16 04:07 Diabetes panel 09/30/16 Range/Units 04:07 Sodium 137 (136-145) mEq/L Potassium 4.9 H (3.5-4.5) mEq/L Chloride 108 (98-109) mEq/L Carbon Dioxide 19 (19-29) mEq/L BUN 30 H (8-26) mg/dL Creatinine 1.34 H (0.72-1.25) mg/dL Glucose 97 (70-99) mg/dL Calcium 8.2 L (8.6-10.8) mg/dL Calcium panel 09/30/16 Range/Units 04:07 Calcium 8.2 L (8.6-10.8) mg/dL Phosphorus 4.1 (2.3-4.7) mg/dL Pituitary panel 09/30/16 Range/Units 04:07 Sodium 137 (136-145) mEq/L Potassium 4.9 H (3.5-4.5) mEq/L Chloride 108 (98-109) mEq/L Carbon Dioxide 19 (19-29) mEq/L BUN 30 H (8-26) mg/dL Creatinine 1.34 H (0.72-1.25) mg/dL Glucose 97 (70-99) mg/dL Calcium 8.2 L (8.6-10.8) mg/dL Adrenal panel 09/30/16 Range/Units 04:07 Sodium 137 (136-145) mEq/L Potassium 4.9 H (3.5-4.5) mEq/L Chloride 108 (98-109) mEq/L Carbon Dioxide 19 (19-29) mEq/L BUN 30 H (8-26) mg/dL Creatinine 1.34 H (0.72-1.25) mg/dL Glucose 97 (70-99) mg/dL Calcium 8.2 L (8.6-10.8) mg/dL - VTE Documentation of Mechanical Device: Intermittent pneumatic compression device Consult Discharge Plan - Plan Referrals: Jerel Mallory DO [Primary Care Provider] - <Amy Kolb - Last Filed: 09/30/16 18:15> - Assessment and Plan (1) BPH (benign prostatic hyperplasia) Current Visit: Yes Status: Acute Qualifiers: Prostatic enlargement morphology: unspecified morphology Lower urinary tract symptom presence: presence of symptoms unspecified Qualified Code(s): N40.0 - Benign prostatic hyperplasia without lower urinary tract symptoms (2) HTN (hypertension) Current Visit: Yes Status: Acute elevated BP's, start scheduled lopressor Qualifiers: Hypertension type: essential hypertension Qualified Code(s): I10 - Essential (primary) hypertension (3) Right distal ureteral calculus Current Visit: Yes Status: Acute resolved, back pain better (4) Small bowel obstruction Current Visit: Yes Status: Acute continue ngt decompression, hypoactive bowel sounds and minimal flatus prn pain control gi/dvt prophylaxis OOB to chair BID ambulate in [place] serial abdominal exams (5) Acute kidney injury Current Visit: Yes Status: Acute improving, good uop, Cr in am Subjective Patient reports: no new complaints Narrative: feels a little better, passed a small amount of flatus, no bm, no nausea previous back pain resolved Objective Vital Signs - Last 8 Hours Temp Pulse Resp BP Pulse Ox 09/30/16 14:50 98.5 F 87 18 164/78 95 09/30/16 11:02 97.7 F 78 16 151/82 94 L Intake and Output 09/30/16 09/30/16 09/30/16 07:59 15:59 23:59 Intake Total 1000 / 1000 1000 / 1000 Output Total 925 / 925 400 / 400 Balance 75 / 75 600 / 600 Intake: IV Fluids 1000 / 1000 1000 / 1000 0.9 % Sodium Chloride 1, 1000 / 1000 1000 / 1000 000 ML @ 130 mls/hr IVC . [id number] [facility] Rx#:[id number] Oral 0 / 0 Output: Urine 575 / 575 400 / 400 Gastric Drainage 350 / 350 Other: Meal npo NPO Weight 91.4 kg Blood Glucose* 93 79 81 Patient Weight 09/30/16 23:59 Weight 91.4 kg - General physical appearance well developed, well nourished - Eyes PERRL, normal ocular movement - ENT normal mucosa, atraumatic, normocephalic - Neck Neck exam: trachea midline - Respiratory normal expansion, clear to auscultation - Cardiovascular Cardiovascular exam: Present: RRR - Abdomen Abdomen: Present: bowel sounds present (hypoactive), soft, distended (less distended than yday). Absent: guarding, rebound - Integumentary no rash, no growths - Neurologic CN 2-12 grossly intact - Musculoskeletal normal posture - Psychiatric oriented to time, memory intact - Labs 09/30/16 04:07 09/30/16 04:07 Vital Signs Temp Pulse Resp BP Pulse Ox 09/30/16 14:50 98.5 F 87 18 164/78 95 09/30/16 11:02 97.7 F 78 16 151/82 94 L 09/30/16 06:56 97.4 F L 81 14 131/72 94 L 09/30/16 03:40 98.1 F 99 16 115/74 97 09/30/16 00:26 98.1 F 75 18 116/70 93 L 09/29/16 19:25 98.9 F 83 18 129/84 99 09/29/16 18:45 98.7 F 81 16 138/79 94 L Intake and Output 09/30/16 09/30/16 09/30/16 07:59 15:59 23:59 Intake Total 1000 / 1000 1000 / 1000 Output Total 925 / 925 400 / 400 Balance 75 / 75 600 / 600 Intake: IV Fluids 1000 / 1000 1000 / 1000 0.9 % Sodium Chloride 1, 1000 / 1000 1000 / 1000 000 ML @ 130 mls/hr IVC . Q7H42M [facility] Rx#:[id number] Oral 0 / 0 Output: Urine 575 / 575 400 / 400 Gastric Drainage 350 / 350 Other: Meal npo NPO Weight 91.4 kg Blood Glucose* 93 79 81 Patient Weight 09/30/16 23:59 Weight 91.4 kg Short CBC 09/30/16 Range/Units 04:07 WBC 5.8 (4.3-11.1) K/mcL Hgb 10.2 L (12.9-16.9) g/dL Hct 31.1 L (37.5-50.1) % Plt Count 128 L (140-400) K/mcL Neutrophils # 4.9 (1.6-8.9) K/mcL BMP 09/30/16 Range/Units 04:07 Sodium 137 (136-145) mEq/L Potassium 4.9 H (3.5-4.5) mEq/L Chloride 108 (98-109) mEq/L Carbon Dioxide 19 (19-29) mEq/L BUN 30 H (8-26) mg/dL Creatinine 1.34 H (0.72-1.25) mg/dL Glucose 97 (70-99) mg/dL Calcium 8.2 L (8.6-10.8) mg/dL - Attending Attestation I examined this patient and my medical decision-making was reviewed with the SHANKER OUT/PA/Advanced Practice Nurse/Resident Physician. I agree with the documented findings, disposition and treatment plan as described except to the extent set forth below.
[2016-09-30] MEDS: *HR* HYDROmorphone (PF) 1 MG/ML SYRINGE IVP PRN (18:23)
[2016-09-30] MEDS ORDERED: Acetaminophen IV 1,000 MG/100 ML INFUS..BTL IVPB ONE (20:50)
[2016-10-01] MEDS: *HR* HYDROmorphone (PF) 1 MG/ML SYRINGE IVP PRN ×7 (00:18→19:24)
[2016-10-01] MEDS: *HR* Metoprolol 5 MG/5 ML VIAL IVP SCH ×4 (00:18→18:13)
[2016-10-01 04:38] LABS: Basophils % 0.1 %; Eosinophils % 0.4 %; Hematocrit 32.2 % (37.5-50.1); Hemoglobin 10.5 g/dL (12.9-16.9); Immature Granulocytes % 0.5 % (0-4); Lymphocytes # 0.5 K/mcL (0.6-4.6); Mean Corpuscular HGB Conc 32.6 g/dL (31.6-35.5); Mean Corpuscular Hemoglobin 28.6 pg (28.0-33.3); Mean Corpuscular Volume 87.7 fL (83.0-100.0); Mean Platelet Volume 9.6 fL (9.4-12.4); Monocytes # 0.9 K/mcL (0.0-1.3); Monocytes % 11.5 %; Neutrophils # 6.2 K/mcL (1.6-8.9); Platelet Count 153 K/mcL (140-400); Red Blood Count 3.67 M/mcL (4.19-5.50); Red Cell Distribution Width 14.1 % (11.5-14.5); Segmented Neutrophils % 81.5 %
[2016-10-01 05:03] LABS: BUN/Creatinine Ratio 26 (6-26); Blood Urea Nitrogen 32 mg/dL (8-26); Calcium 8.6 mg/dL (8.6-10.8); Carbon Dioxide 18 mEq/L (19-29); Chloride 110 mEq/L (98-109); Glucose 81 mg/dL (70-99); Osmolality,Calculated 292 (280-300); Potassium 4.7 mEq/L (3.5-4.5); Sodium 138 mEq/L (136-145); eGFR For African Americans > 60 (> 60); eGFR For Non-African Americans 57 (> 60)
--- NOTE | 2016-10-01 06:14 | Electrocardiograph Report ---
[facility] Test Date: 2016-09-29 Pat Name: SKYLER ACOSTA Department: [id number] Room: 3A44 Gender: M Gas Operations Analyst: [id number] : 1935 Requested By: Amy Kolb Order Number: [id number] Reading MD: Zach Collazo MD Measurements Intervals [place] Rate: 86 P: 52 UT: 170 QRS: 2 QRSD: 104 T: 6 QT: 358 QTc: 402 Interpretive Statements SINUS RHYTHM WITH OCCASIONAL SUPRAVENTRICULAR PREMATURE COMPLEXES INFERIOR MYOCARDIAL INFARCTION, PROBABLY OLD Electronically Signed On 10-01-16 06:13:30 EST by Zach Collazo MD
[2016-10-01] MEDS: *HR* Heparin 5,000 UNIT/ML VIAL SQ SCH ×2 (06:29→18:13)
--- NOTE | 2016-10-01 07:02 | Urology Progress Note ---
Date of Encounter: 10/01/16 Time of Encounter: 07:00 - Assessment and Plan (1) Right distal ureteral calculus Current Visit: Yes Status: Acute Assessment and plan: Stent came out inadvertently yesterday. He is still having right flank pain. UOP and creatinine are stable. Will consider renal u/s vs repeat CT scan to see if there is persistent hydronephrosis. We discussed replacement of the stent, but he would like to hold off on that for now if possible. Progress Note Narrative: Stent came out yesterday. He was still having right flank pain with the stent in place and it is still present this morning. Objective Initial Vital Signs Temp Pulse Resp BP Pulse Ox 97.6 F 101 17 90/61 87 L 09/28/16 18:48 09/28/16 18:48 09/28/16 18:48 09/28/16 18:48 09/28/16 18:48 - General physical appearance Present: well developed, well nourished, no distress - Respiratory Present: normal respiratory effort - Abdomen Present: distended - Labs 10/01/16 04:16 10/01/16 04:16 Diabetes panel 10/01/16 Range/Units 04:16 Sodium 138 (136-145) mEq/L Potassium 4.7 H (3.5-4.5) mEq/L Chloride 110 H (98-109) mEq/L Carbon Dioxide 18 L (19-29) mEq/L BUN 32 H (8-26) mg/dL Creatinine 1.23 (0.72-1.25) mg/dL Glucose 81 (70-99) mg/dL Calcium 8.6 (8.6-10.8) mg/dL Calcium panel 10/01/16 Range/Units 04:16 Calcium 8.6 (8.6-10.8) mg/dL Pituitary panel 10/01/16 Range/Units 04:16 Sodium 138 (136-145) mEq/L Potassium 4.7 H (3.5-4.5) mEq/L Chloride 110 H (98-109) mEq/L Carbon Dioxide 18 L (19-29) mEq/L BUN 32 H (8-26) mg/dL Creatinine 1.23 (0.72-1.25) mg/dL Glucose 81 (70-99) mg/dL Calcium 8.6 (8.6-10.8) mg/dL Adrenal panel 10/01/16 Range/Units 04:16 Sodium 138 (136-145) mEq/L Potassium 4.7 H (3.5-4.5) mEq/L Chloride 110 H (98-109) mEq/L Carbon Dioxide 18 L (19-29) mEq/L BUN 32 H (8-26) mg/dL Creatinine 1.23 (0.72-1.25) mg/dL Glucose 81 (70-99) mg/dL Calcium 8.6 (8.6-10.8) mg/dL - VTE Documentation of Mechanical Device: Intermittent pneumatic compression device Consult Discharge Plan - Plan Referrals: Jerel Mallory DO [Primary Care Provider] -
[2016-10-01] MEDS: Pantoprazole 40 MG VIAL IVP SCH (07:29)
[2016-10-01] MEDS: 0.9 % Sodium Chloride 1,000 ML IVC SCH (09:03)
--- NOTE | 2016-10-01 13:44 | General Surgery Progress Note ---
<Freddy Zeng - Last Filed: 10/01/16 13:41> Date of Encounter: 10/01/16 Time of Encounter: 12:10 - Assessment and Plan (1) Small bowel obstruction Current Visit: Yes Status: Acute (2) Right distal ureteral calculus Current Visit: Yes Status: Acute (3) HTN (hypertension) Current Visit: Yes Status: Acute Qualifiers: Hypertension type: essential hypertension Qualified Code(s): I10 - Essential (primary) hypertension Objective Vital Signs - Last 8 Hours Temp Pulse Resp BP Pulse Ox 10/01/16 10:36 94 L 10/01/16 09:58 97.8 F 74 18 129/73 94 L 10/01/16 07:02 97.6 F 75 18 116/62 94 L 10/01/16 07:00 94 L Intake and Output 09/30/16 10/01/16 10/01/16 23:59 07:59 15:59 Intake Total 900 / 900 758 / 758 367 / 367 Output Total 800 / 800 300 / 300 Balance 900 / 900 -42 / -42 / Intake: IV Fluids 900 / 900 758 / 758 367 / 367 0.9 % Sodium Chloride 1, 758 / 758 367 / 367 000 ML @ 80 mls/hr IVC . [id number] [facility] Rx#: [id number] Output: Urine 800 / 800 300 / 300 Other: Meal NPO NPO Blood Glucose* 89 81 72 - Labs 10/01/16 04:16 10/01/16 04:16 Diabetes panel 10/01/16 Range/Units 04:16 Sodium 138 (136-145) mEq/L Potassium 4.7 H (3.5-4.5) mEq/L Chloride 110 H (98-109) mEq/L Carbon Dioxide 18 L (19-29) mEq/L BUN 32 H (8-26) mg/dL Creatinine 1.23 (0.72-1.25) mg/dL Glucose 81 (70-99) mg/dL Calcium 8.6 (8.6-10.8) mg/dL Calcium panel 10/01/16 Range/Units 04:16 Calcium 8.6 (8.6-10.8) mg/dL Pituitary panel 10/01/16 Range/Units 04:16 Sodium 138 (136-145) mEq/L Potassium 4.7 H (3.5-4.5) mEq/L Chloride 110 H (98-109) mEq/L Carbon Dioxide 18 L (19-29) mEq/L BUN 32 H (8-26) mg/dL Creatinine 1.23 (0.72-1.25) mg/dL Glucose 81 (70-99) mg/dL Calcium 8.6 (8.6-10.8) mg/dL Adrenal panel 10/01/16 Range/Units 04:16 Sodium 138 (136-145) mEq/L Potassium 4.7 H (3.5-4.5) mEq/L Chloride 110 H (98-109) mEq/L Carbon Dioxide 18 L (19-29) mEq/L BUN 32 H (8-26) mg/dL Creatinine 1.23 (0.72-1.25) mg/dL Glucose 81 (70-99) mg/dL Calcium 8.6 (8.6-10.8) mg/dL - VTE Documentation of Mechanical Device: Intermittent pneumatic compression device Consult Discharge Plan - Plan Referrals: Jerel Mallory DO [Primary Care Provider] - <Amy Kolb - Last Filed: 10/01/16 15:27> - Assessment and Plan (1) BPH (benign prostatic hyperplasia) Current Visit: Yes Status: Acute holding home meds until can tolerate po Qualifiers: Prostatic enlargement morphology: unspecified morphology Lower urinary tract symptom presence: presence of symptoms unspecified Qualified Code(s): N40.0 - Benign prostatic hyperplasia without lower urinary tract symptoms (2) HTN (hypertension) Current Visit: Yes Status: Acute prn hypertension medication, primarily normotensive Qualifiers: Hypertension type: essential hypertension Qualified Code(s): I10 - Essential (primary) hypertension (3) Small bowel obstruction Current Visit: Yes Status: Acute passing flatus, feels better, no abdominal pain, less distended, no bowel movement has bowel sounds, will check will check sbft, if normal will dc ngt and start clears (4) Acute kidney injury Current Visit: Yes Status: Acute resolving, good uop and Cr wnl now Subjective Patient reports: no new complaints, feels better, pain is less, flatus, no bowel movement, afebrile Objective Vital Signs - Last 8 Hours Temp Pulse Resp BP Pulse Ox 10/01/16 15:00 94 L 10/01/16 10:36 94 L 10/01/16 09:58 97.8 F 74 18 129/73 94 L Intake and Output 09/30/16 10/01/16 10/01/16 23:59 07:59 15:59 Intake Total 900 / 900 758 / 758 767 / 767 Output Total 800 / 800 300 / 300 Balance 900 / 900 -42 / -42 467 / 467 Intake: IV Fluids 900 / 900 758 / 758 767 / 767 0.9 % Sodium Chloride 1, 758 / 758 767 / 767 000 ML @ 80 mls/hr IVC . [id number] [facility] Rx#: [id number] Output: Urine 800 / 800 300 / 300 Other: Meal NPO NPO Blood Glucose* 89 81 72 - General physical appearance well developed, well nourished, no distress - Eyes PERRL, normal ocular movement - ENT normal mucosa, normocephalic - Neck Neck exam: trachea midline - Respiratory normal expansion, clear to auscultation - Cardiovascular Cardiovascular exam: Present: RRR - Abdomen Abdomen: Present: bowel sounds present, soft, non tender. Absent: distended, guarding, rebound - Neurologic CN 2-12 grossly intact - Musculoskeletal normal posture - Psychiatric oriented to time, oriented to person, oriented to place, memory intact - Labs 10/01/16 04:16 10/01/16 04:16 Short CBC 10/01/16 Range/Units 04:16 WBC 7.6 (4.3-11.1) K/mcL Hgb 10.5 L (12.9-16.9) g/dL Hct 32.2 L (37.5-50.1) % Plt Count 153 (140-400) K/mcL Neutrophils # 6.2 (1.6-8.9) K/mcL BMP 10/01/16 Range/Units 04:16 Sodium 138 (136-145) mEq/L Potassium 4.7 H (3.5-4.5) mEq/L Chloride 110 H (98-109) mEq/L Carbon Dioxide 18 L (19-29) mEq/L BUN 32 H (8-26) mg/dL Creatinine 1.23 (0.72-1.25) mg/dL Glucose 81 (70-99) mg/dL Calcium 8.6 (8.6-10.8) mg/dL Vital Signs Temp Pulse Resp BP Pulse Ox 10/01/16 15:00 94 L 10/01/16 10:36 94 L 10/01/16 09:58 97.8 F 74 18 129/73 94 L 10/01/16 07:02 97.6 F 75 18 116/62 94 L 10/01/16 07:00 94 L 10/01/16 04:35 98.1 F 85 20 103/66 96 09/30/16 23:44 98.1 F 74 20 144/75 94 L 09/30/16 20:25 98.1 F 85 22 137/74 92 L 09/30/16 20:00 94 L Intake and Output 09/30/16 10/01/16 10/01/16 23:59 07:59 15:59 Intake Total 900 / 900 758 / 758 767 / 767 Output Total 800 / 800 300 / 300 Balance 900 / 900 -42 / -42 467 / 467 Intake: IV Fluids 900 / 900 758 / 758 767 / 767 0.9 % Sodium Chloride 1, 758 / 758 767 / 767 000 ML @ 80 mls/hr IVC . [id number] [facility] Rx#: [id number] Output: Urine 800 / 800 300 / 300 Other: Meal NPO NPO Blood Glucose* 89 81 72 - Imaging CT scan - abdomen: report reviewed, image reviewed CT scan - pelvis: report reviewed, image reviewed - Attending Attestation I examined this patient and my medical decision-making was reviewed with the MEMBERSHIP COUNSELOR/PA/Advanced Practice Nurse/Resident Physician. I agree with the documented findings, disposition and treatment plan as described except to the extent set forth below.
[2016-10-01] MEDS ORDERED: Acetaminophen IV 1,000 MG/100 ML INFUS..BTL IVPB PRN (15:22)
[2016-10-02] MEDS: 0.9 % Sodium Chloride 1,000 ML IVC SCH ×2 (01:05→11:19)
[2016-10-02 04:58] LABS: Basophils % 0.2 %; Eosinophils # 0.1 K/mcL (0.0-0.6); Eosinophils % 2.3 %; Hematocrit 31.3 % (37.5-50.1); Hemoglobin 10.1 g/dL (12.9-16.9); Immature Granulocytes % 0.4 % (0-4); Lymphocytes # 0.7 K/mcL (0.6-4.6); Lymphocytes % 12.5 %; Mean Corpuscular HGB Conc 32.3 g/dL (31.6-35.5); Mean Corpuscular Hemoglobin 28.9 pg (28.0-33.3); Mean Corpuscular Volume 89.4 fL (83.0-100.0); Mean Platelet Volume 9.3 fL (9.4-12.4); Monocytes # 0.6 K/mcL (0.0-1.3); Monocytes % 11.7 %; Neutrophils # 3.9 K/mcL (1.6-8.9); Platelet Count 142 K/mcL (140-400); Red Cell Distribution Width 14.2 % (11.5-14.5); Segmented Neutrophils % 72.9 %
[2016-10-02 05:07] LABS: BUN/Creatinine Ratio 30 (6-26); Blood Urea Nitrogen 29 mg/dL (8-26); Calcium 8.5 mg/dL (8.6-10.8); Carbon Dioxide 18 mEq/L (19-29); Chloride 113 mEq/L (98-109); Glucose 82 mg/dL (70-99); Osmolality,Calculated 301 (280-300); Potassium 4.5 mEq/L (3.5-4.5); Sodium 143 mEq/L (136-145); eGFR For African Americans > 60 (> 60); eGFR For Non-African Americans > 60 (> 60)
[2016-10-02] MEDS: *HR* HYDROmorphone (PF) 1 MG/ML SYRINGE IVP PRN ×7 (05:17→19:20)
[2016-10-02] MEDS: *HR* Metoprolol 5 MG/5 ML VIAL IVP SCH ×5 (05:17→23:23)
[2016-10-02 05:51] LABS: Platelet Estimate Normal (Normal); Reactive Lymphocytes Present (Not Present)
[2016-10-02] MEDS: *HR* Heparin 5,000 UNIT/ML VIAL SQ SCH ×2 (06:24→18:22)
--- NOTE | 2016-10-02 07:15 | Urology Progress Note ---
Date of Encounter: 10/02/16 Time of Encounter: 07:12 - Assessment and Plan (1) Right distal ureteral calculus Current Visit: Yes Status: Acute Assessment and plan: He had some right hydroureteronephrosis. This will likely resolve. I anticipate his pain will improve with oral medications once he begins diet. Creatinine is normal. No evidence of fevers or chills. Will continue to observe. We discussed replacement of the stent, but he wishes to hold off as his pain is slowly improving. Progress Note Narrative: Bowel function has improved. He had his NG tube removed and he is on clear liquids. Right flank pain was improved yesterday, but he required some pain medication overnight. His creatinine has improved to 0.97. Objective Initial Vital Signs Temp Pulse Resp BP Pulse Ox 97.6 F 101 17 90/61 87 L 09/28/16 18:48 09/28/16 18:48 09/28/16 18:48 09/28/16 18:48 09/28/16 18:48 - General physical appearance Present: well developed, well nourished, no distress - Respiratory Present: normal respiratory effort - Abdomen Present: soft - Genitourinary Urine Appearance: Present: Clear - Labs 10/02/16 04:28 10/02/16 04:28 Diabetes panel 10/02/16 Range/Units 04:28 Sodium 143 (136-145) mEq/L Potassium 4.5 (3.5-4.5) mEq/L Chloride 113 H (98-109) mEq/L Carbon Dioxide 18 L (19-29) mEq/L BUN 29 H (8-26) mg/dL Creatinine 0.97 (0.72-1.25) mg/dL Glucose 82 (70-99) mg/dL Calcium 8.5 L (8.6-10.8) mg/dL Calcium panel 10/02/16 Range/Units 04:28 Calcium 8.5 L (8.6-10.8) mg/dL Pituitary panel 10/02/16 Range/Units 04:28 Sodium 143 (136-145) mEq/L Potassium 4.5 (3.5-4.5) mEq/L Chloride 113 H (98-109) mEq/L Carbon Dioxide 18 L (19-29) mEq/L BUN 29 H (8-26) mg/dL Creatinine 0.97 (0.72-1.25) mg/dL Glucose 82 (70-99) mg/dL Calcium 8.5 L (8.6-10.8) mg/dL Adrenal panel 10/02/16 Range/Units 04:28 Sodium 143 (136-145) mEq/L Potassium 4.5 (3.5-4.5) mEq/L Chloride 113 H (98-109) mEq/L Carbon Dioxide 18 L (19-29) mEq/L BUN 29 H (8-26) mg/dL Creatinine 0.97 (0.72-1.25) mg/dL Glucose 82 (70-99) mg/dL Calcium 8.5 L (8.6-10.8) mg/dL - VTE Documentation of Mechanical Device: Intermittent pneumatic compression device Consult Discharge Plan - Plan Referrals: Jerel Malloyr DO [Primary Care Provider] -
[2016-10-02] MEDS: Pantoprazole 40 MG VIAL IVP SCH (07:25)
--- NOTE | 2016-10-02 09:39 | General Surgery Progress Note ---
<Freddy Zeng - Last Filed: 10/02/16 09:37> Date of Encounter: 10/02/16 Time of Encounter: 08:30 - Assessment and Plan (1) Small bowel obstruction Current Visit: Yes Status: Acute NG removed Tolerating clear liquids Consider restarting PO meds as diet is advanced. IV fluids @ 80cc/hr (2) Right distal ureteral calculus Current Visit: Yes Status: Acute Right hydroureternephrosis. Cr improved, [place] resolved. Urology following patient. (3) HTN (hypertension) Current Visit: Yes Status: Acute normotensive BP this AM 132/67 Continue lopressor 5mg Q6H Qualifiers: Hypertension type: essential hypertension Qualified Code(s): I10 - Essential (primary) hypertension (4) Acute kidney injury Current Visit: Yes Status: Resolved Resolved, Cr. improved to 0.97 with GFR >60. (5) BPH (benign prostatic hyperplasia) Current Visit: Yes Status: Chronic Holding meds til can tolerate PO Currently on clear liquids. Qualifiers: Prostatic enlargement morphology: unspecified morphology Lower urinary tract symptom presence: presence of symptoms unspecified Qualified Code(s): N40.0 - Benign prostatic hyperplasia without lower urinary tract symptoms Subjective Patient reports: no new complaints, still having pain, tolerating liquids well, flatus, bowel movement, afebrile Objective Vital Signs - Last 8 Hours Temp Pulse Resp BP Pulse Ox 10/02/16 07:40 97.6 F 78 16 144/78 94 L 10/02/16 06:56 93 L 10/02/16 05:29 97.6 F 77 20 132/67 93 L Intake and Output 10/01/16 10/02/16 10/02/16 23:59 07:59 15:59 Intake Total 309 / 309 743 / 743 Output Total 400 / 400 200 / 200 Balance -91 / -91 543 / 543 Intake: IV Fluids 309 / 309 743 / 743 0.9 % Sodium Chloride 1, 309 / 309 743 / 743 000 ML @ 80 mls/hr IVC . [id number] ROSA Rx#: [id number] Oral 0 / 0 Output: Urine 200 / 200 Gastric Drainage 400 / 400 Other: Meal NPO Stool Size Moderate Stool Consistency loose liquid Stool Color Brown Yellow # Bowel Movements 1 Blood Glucose* 70 - General physical appearance well developed, well nourished, no distress - Eyes normal ocular movement - ENT normal mucosa, atraumatic, normocephalic - Neck Neck exam: trachea midline - Respiratory normal respiratory effort, clear to auscultation - Cardiovascular Cardiovascular exam: Present: RRR - Abdomen Abdomen: Present: bowel sounds present (hypoactive), soft, non tender - Genitourinary other (right sided CVA tenderness) - Integumentary no rash - Neurologic CN 2-12 grossly intact - Psychiatric oriented to time, oriented to person, oriented to place, speech is normal, memory intact - Labs 10/02/16 04:28 10/02/16 04:28 Diabetes panel 10/02/16 Range/Units 04:28 Sodium 143 (136-145) mEq/L Potassium 4.5 (3.5-4.5) mEq/L Chloride 113 H (98-109) mEq/L Carbon Dioxide 18 L (19-29) mEq/L BUN 29 H (8-26) mg/dL Creatinine 0.97 (0.72-1.25) mg/dL Glucose 82 (70-99) mg/dL Calcium 8.5 L (8.6-10.8) mg/dL Calcium panel 10/02/16 Range/Units 04:28 Calcium 8.5 L (8.6-10.8) mg/dL Pituitary panel 10/02/16 Range/Units 04:28 Sodium 143 (136-145) mEq/L Potassium 4.5 (3.5-4.5) mEq/L Chloride 113 H (98-109) mEq/L Carbon Dioxide 18 L (19-29) mEq/L BUN 29 H (8-26) mg/dL Creatinine 0.97 (0.72-1.25) mg/dL Glucose 82 (70-99) mg/dL Calcium 8.5 L (8.6-10.8) mg/dL Adrenal panel 10/02/16 Range/Units 04:28 Sodium 143 (136-145) mEq/L Potassium 4.5 (3.5-4.5) mEq/L Chloride 113 H (98-109) mEq/L Carbon Dioxide 18 L (19-29) mEq/L BUN 29 H (8-26) mg/dL Creatinine 0.97 (0.72-1.25) mg/dL Glucose 82 (70-99) mg/dL Calcium 8.5 L (8.6-10.8) mg/dL - VTE Documentation of Mechanical Device: Intermittent pneumatic compression device Consult Discharge Plan - Plan Referrals: Jerel Mallory, [Primary Care Provider] - <Amy Kolb - Last Filed: 10/02/16 12:07> - Assessment and Plan (1) BPH (benign prostatic hyperplasia) Current Visit: Yes Status: Chronic Qualifiers: Prostatic enlargement morphology: unspecified morphology Lower urinary tract symptom presence: presence of symptoms unspecified Qualified Code(s): N40.0 - Benign prostatic hyperplasia without lower urinary tract symptoms (2) HTN (hypertension) Current Visit: Yes Status: Acute Qualifiers: Hypertension type: essential hypertension Qualified Code(s): I10 - Essential (primary) hypertension (3) Small bowel obstruction Current Visit: Yes Status: Acute sbft showed no obstruction, he has had bm's tolerating clears, advance to fulls for lunch sliv start tylenol for back pain overall patient much improved (4) Acute kidney injury Current Visit: Yes Status: Resolved Subjective Patient reports: no new complaints, still having pain (in the back but it is much better than previously), tolerating liquids well, flatus, bowel movement Objective Vital Signs - Last 8 Hours Temp Pulse Resp BP Pulse Ox 10/02/16 11:00 97.6 F 77 16 167/80 94 L 10/02/16 07:40 97.6 F 78 16 144/78 94 L 10/02/16 06:56 93 L 10/02/16 05:29 97.6 F 77 20 132/67 93 L Intake and Output 10/01/16 10/02/16 10/02/16 23:59 07:59 15:59 Intake Total 309 / 309 743 / 743 713 / 713 Output Total 400 / 400 200 / 200 0 / 0 Balance -91 / -91 543 / 543 713 / 713 Intake: IV Fluids 309 / 309 743 / 743 473 / 473 0.9 % Sodium Chloride 1, 309 / 309 743 / 743 473 / 473 000 ML @ 80 mls/hr IVC . [id number] ROSA Rx#: [id number] Oral 0 / 0 240 / 240 Output: Urine 200 / 200 0 / 0 Gastric Drainage 400 / 400 Other: Meal NPO Breakfast Stool Size Moderate Stool Consistency loose liquid Stool Color Brown Yellow # Bowel Movements 1 Blood Glucose* 70 - General physical appearance well developed, well nourished, no distress - Eyes normal ocular movement - ENT normal mucosa, atraumatic, normocephalic - Neck Neck exam: trachea midline - Respiratory normal respiratory effort, clear to auscultation - Cardiovascular Cardiovascular exam: Present: RRR - Abdomen Abdomen: Present: bowel sounds present, soft, non tender - Integumentary no rash, no growths - Neurologic CN 2-12 grossly intact - Musculoskeletal normal posture - Psychiatric oriented to time, oriented to person, oriented to place, memory intact - Labs 10/02/16 04:28 10/02/16 04:28 Diabetes panel 10/02/16 Range/Units 04:28 Sodium 143 (136-145) mEq/L Potassium 4.5 (3.5-4.5) mEq/L Chloride 113 H (98-109) mEq/L Carbon Dioxide 18 L (19-29) mEq/L BUN 29 H (8-26) mg/dL Creatinine 0.97 (0.72-1.25) mg/dL Glucose 82 (70-99) mg/dL Calcium 8.5 L (8.6-10.8) mg/dL Calcium panel 10/02/16 Range/Units 04:28 Calcium 8.5 L (8.6-10.8) mg/dL Pituitary panel 10/02/16 Range/Units 04:28 Sodium 143 (136-145) mEq/L Potassium 4.5 (3.5-4.5) mEq/L Chloride 113 H (98-109) mEq/L Carbon Dioxide 18 L (19-29) mEq/L BUN 29 H (8-26) mg/dL Creatinine 0.97 (0.72-1.25) mg/dL Glucose 82 (70-99) mg/dL Calcium 8.5 L (8.6-10.8) mg/dL Adrenal panel 10/02/16 Range/Units 04:28 Sodium 143 (136-145) mEq/L Potassium 4.5 (3.5-4.5) mEq/L Chloride 113 H (98-109) mEq/L Carbon Dioxide 18 L (19-29) mEq/L BUN 29 H (8-26) mg/dL Creatinine 0.97 (0.72-1.25) mg/dL Glucose 82 (70-99) mg/dL Calcium 8.5 L (8.6-10.8) mg/dL - Attending Attestation I examined this patient and my medical decision-making was reviewed with the MANAGER OF EXHIBITIONS AND COLLECTIONS/PA/Advanced Practice Nurse/Resident Physician. I agree with the documented findings, disposition and treatment plan as described except to the extent set forth below.
[2016-10-02] MEDS ORDERED: Acetaminophen 325 MG TABLET PO PRN (11:20)
[2016-10-02] MEDS: *HR* Metoprolol 5 MG/5 ML VIAL IVP PRN (20:07)
[2016-10-02] MEDS: Ketorolac 15 MG/ML VIAL IVP PRN (21:14)
[2016-10-03] MEDS: Ketorolac 15 MG/ML VIAL IVP PRN ×3 (03:26→22:20)
[2016-10-03] MEDS: *HR* Metoprolol 5 MG/5 ML VIAL IVP SCH (05:39)
[2016-10-03 05:55] LABS: Basophils % 0.4 %; Eosinophils # 0.1 K/mcL (0.0-0.6); Eosinophils % 2.9 %; Hematocrit 31.2 % (37.5-50.1); Hemoglobin 10.3 g/dL (12.9-16.9); Immature Granulocytes % 0.2 % (0-4); Lymphocytes # 0.8 K/mcL (0.6-4.6); Lymphocytes % 16.3 %; Mean Corpuscular Hemoglobin 28.6 pg (28.0-33.3); Mean Corpuscular Volume 86.7 fL (83.0-100.0); Mean Platelet Volume 9.2 fL (9.4-12.4); Monocytes # 0.6 K/mcL (0.0-1.3); Monocytes % 11.9 %; Neutrophils # 3.3 K/mcL (1.6-8.9); Platelet Count 144 K/mcL (140-400); Red Cell Distribution Width 13.7 % (11.5-14.5); Segmented Neutrophils % 68.3 %
[2016-10-03 06:21] LABS: BUN/Creatinine Ratio 25 (6-26); Blood Urea Nitrogen 22 mg/dL (8-26); Calcium 8.3 mg/dL (8.6-10.8); Carbon Dioxide 24 mEq/L (19-29); Chloride 108 mEq/L (98-109); Glucose 136 mg/dL (70-99); Osmolality,Calculated 293 (280-300); Potassium 3.9 mEq/L (3.5-4.5); Sodium 139 mEq/L (136-145); eGFR For African Americans > 60 (> 60); eGFR For Non-African Americans > 60 (> 60)
[2016-10-03] MEDS: *HR* Heparin 5,000 UNIT/ML VIAL SQ SCH ×2 (06:35→19:39)
[2016-10-03] MEDS: *HR* Metoprolol 5 MG/5 ML VIAL IVP PRN ×2 (07:27→20:42)
[2016-10-03] MEDS: Pantoprazole 40 MG VIAL IVP SCH (09:07)
--- NOTE | 2016-10-03 09:43 | General Surgery Progress Note ---
Date of Encounter: 10/03/16 Time of Encounter: 09:41 - Assessment and Plan (1) BPH (benign prostatic hyperplasia) Current Visit: Yes Status: Chronic give home po meds Qualifiers: Prostatic enlargement morphology: unspecified morphology Lower urinary tract symptom presence: presence of symptoms unspecified Qualified Code(s): N40.0 - Benign prostatic hyperplasia without lower urinary tract symptoms (2) HTN (hypertension) Current Visit: Yes Status: Acute restart lisinopril and prn beta miryam Qualifiers: Hypertension type: essential hypertension Qualified Code(s): I10 - Essential (primary) hypertension (3) Small bowel obstruction Current Visit: Yes Status: Acute tolerating diet sbo resolved at this point (4) Acute kidney injury Current Visit: Yes Status: Resolved resolved, good uop and Cr wnl now (5) Hydronephrosis Current Visit: Yes Status: Acute disussed with urology today his continued intermittent back pain, they will discuss with him today, continue prn medication Qualifiers: Hydronephrosis type: unspecified Qualified Code(s): N13.30 - Unspecified hydronephrosis Subjective Narrative: denies abdominal pain, passing flatus, having bm he had an episode of right back pain last night, it is currently not present Objective Vital Signs - Last 8 Hours Temp Pulse Resp BP Pulse Ox 10/03/16 06:59 97.3 F L 67 14 159/86 94 L 10/03/16 05:36 98.1 F 70 14 162/88 97 10/03/16 03:30 97.7 F 75 16 153/81 95 Intake and Output 10/02/16 10/03/16 10/03/16 23:59 07:59 15:59 Intake Total 120 / 120 200 / 200 Output Total 100 / 100 Balance 20 / 20 200 / 200 Intake: Oral 120 / 120 200 / 200 Output: Urine 100 / 100 Other: Meal Dinner Percent of Meal Consumed 0% Stool Size Small Stool Consistency liquid Stool Color Brown Yellow # Voids 1 # Bowel Movements 1 - General physical appearance well developed, well nourished, no distress - Eyes PERRL, normal ocular movement - ENT normal mucosa, atraumatic, normocephalic - Neck Neck exam: trachea midline - Respiratory normal expansion, clear to auscultation - Cardiovascular Cardiovascular exam: Present: RRR - Abdomen Abdomen: Present: bowel sounds present, soft, non tender. Absent: distended, guarding, rebound - Integumentary no rash, no growths - Neurologic CN 2-12 grossly intact - Musculoskeletal normal posture - Psychiatric oriented to time, oriented to person, oriented to place, speech is normal, memory intact - Labs 10/03/16 05:19 10/03/16 05:19 Diabetes panel 10/03/16 Range/Units 05:19 Sodium 139 (136-145) mEq/L Potassium 3.9 (3.5-4.5) mEq/L Chloride 108 (98-109) mEq/L Carbon Dioxide 24 (19-29) mEq/L BUN 22 (8-26) mg/dL Creatinine 0.89 (0.72-1.25) mg/dL Glucose 136 H (70-99) mg/dL Calcium 8.3 L (8.6-10.8) mg/dL Calcium panel 10/03/16 Range/Units 05:19 Calcium 8.3 L (8.6-10.8) mg/dL Pituitary panel 10/03/16 Range/Units 05:19 Sodium 139 (136-145) mEq/L Potassium 3.9 (3.5-4.5) mEq/L Chloride 108 (98-109) mEq/L Carbon Dioxide 24 (19-29) mEq/L BUN 22 (8-26) mg/dL Creatinine 0.89 (0.72-1.25) mg/dL Glucose 136 H (70-99) mg/dL Calcium 8.3 L (8.6-10.8) mg/dL Adrenal panel 10/03/16 Range/Units 05:19 Sodium 139 (136-145) mEq/L Potassium 3.9 (3.5-4.5) mEq/L Chloride 108 (98-109) mEq/L Carbon Dioxide 24 (19-29) mEq/L BUN 22 (8-26) mg/dL Creatinine 0.89 (0.72-1.25) mg/dL Glucose 136 H (70-99) mg/dL Calcium 8.3 L (8.6-10.8) mg/dL - VTE Documentation of Mechanical Device: Intermittent pneumatic compression device Consult Discharge Plan - Plan Referrals: Jerel Mallory DO [Primary Care Provider] -
[2016-10-03] MEDS ORDERED: *HR* OxyCODONE/APAP 5/325 TABLET PO PRN (09:45)
[2016-10-03] MEDS ORDERED: *HR* HYDROmorphone (PF) 1 MG/ML SYRINGE IVP PRN (09:45)
--- NOTE | 2016-10-03 17:07 | Urology Progress Note ---
Date of Encounter: 10/03/16 Time of Encounter: 17:05 - Assessment and Plan (1) Right distal ureteral calculus Current Visit: Yes Status: Acute Assessment and plan: Still with hydronephrosis, but he seems to be improving. No evidence of fevers. WBC normal. Cr is normal. Will keep NPO past midnight. He is on the schedule for right ureteral stent placement tomorow. If his pain returns we will replace the stent. If he is feeling well, we will resume diet in the AM and cancel the procedure. Progress Note Narrative: Doing better this afternoon. He got a dose of toradol last night and is feeling much better. No more right flank pain. He had some intermittent right lower quadrant pain after moving his bowels. ultrasound reviewed. Still some hydronephrosis on the right side. Objective Initial Vital Signs Temp Pulse Resp BP Pulse Ox 97.6 F 101 17 90/61 87 L 09/28/16 18:48 09/28/16 18:48 09/28/16 18:48 09/28/16 18:48 09/28/16 18:48 - General physical appearance Present: well developed, well nourished, no distress - Respiratory Present: normal respiratory effort - Abdomen Present: soft - Labs 10/03/16 05:19 10/03/16 05:19 Diabetes panel 10/03/16 Range/Units 05:19 Sodium 139 (136-145) mEq/L Potassium 3.9 (3.5-4.5) mEq/L Chloride 108 (98-109) mEq/L Carbon Dioxide 24 (19-29) mEq/L BUN 22 (8-26) mg/dL Creatinine 0.89 (0.72-1.25) mg/dL Glucose 136 H (70-99) mg/dL Calcium 8.3 L (8.6-10.8) mg/dL Calcium panel 10/03/16 Range/Units 05:19 Calcium 8.3 L (8.6-10.8) mg/dL Pituitary panel 10/03/16 Range/Units 05:19 Sodium 139 (136-145) mEq/L Potassium 3.9 (3.5-4.5) mEq/L Chloride 108 (98-109) mEq/L Carbon Dioxide 24 (19-29) mEq/L BUN 22 (8-26) mg/dL Creatinine 0.89 (0.72-1.25) mg/dL Glucose 136 H (70-99) mg/dL Calcium 8.3 L (8.6-10.8) mg/dL Adrenal panel 10/03/16 Range/Units 05:19 Sodium 139 (136-145) mEq/L Potassium 3.9 (3.5-4.5) mEq/L Chloride 108 (98-109) mEq/L Carbon Dioxide 24 (19-29) mEq/L BUN 22 (8-26) mg/dL Creatinine 0.89 (0.72-1.25) mg/dL Glucose 136 H (70-99) mg/dL Calcium 8.3 L (8.6-10.8) mg/dL - VTE Documentation of Mechanical Device: Intermittent pneumatic compression device Consult Discharge Plan - Plan Referrals: Jerel Mallory DO [Primary Care Provider] -
--- NOTE | 2016-10-04 01:11 | Anesthesia Evaluation PreOp ---
Date of Encounter: 10/03/16 Time of Encounter: 01:05 - Past History Planned Operation: Cystoscopy, R-stent placement Cardiac History: HTN (maintained on Lisinopril) Pulmonary History: Former smoker Other Medical History: Renal ([place]. R-distal ureteral calculus), Other (BPH) Anesthesia History: Past Anesthesia (Small Bowel REsection) Alcohol Use: none Drug use: none Medications and Allergies Lisinopril [Zestril] 5 mg PO DAILY 09/28/16 [History] Ondansetron HCl [Zofran] 4 mg PO Q4H PRN 09/28/16 [History] Oxycodone HCl/Acetaminophen [Percocet 5-325 mg Tablet] 1 each PO Q4H PRN [History] Tamsulosin [Flomax] 0.4 mg PO DAILY 09/28/16 [History] Vit C/Vit E/Lutein/Min/[place]-3 [Ocuvite Softgel] 1 each PO DAILY 09/28/16 [ History] Ibuprofen [Motrin] 600 mg PO Q8HR PRN #30 tab 10/04/16 [Rx] Allergies No Known Allergies Allergy (Verified 09/28/16 18:53) - Meds/Allergy Pre-op Review Medications Reviewed: Yes Allergies Reviewed: Yes Beta Blockers on Current Med List: No Anesthesia Results - Labs 10/03/16 05:19 10/03/16 05:19 Laboratory Results Impressions Fluoroscopy 09/29/16 00:00 IMPRESSION: Intraprocedural fluoroscopic spot images as above. See separate procedure report for more information. D/ / Mario Norton MD / Mario Norton MD Interpreting Provider: Mario Norton MD Abdomen/Pelvis CT 10/01/16 09:30 IMPRESSION: Moderate right-sided hydronephrosis with extensive right perinephric and periureteral inflammatory changes slightly increased since prior examination. Passage of a distal right ureteral obstructing stone and a nonobstructing right renal stone since prior examination. Resolution of previously seen mild small bowel dilatation. D/ / 10/01/2016 11:38:11 Juwan Chatterjee MD / Charlette Acuña Interpreting Provider: Juwan Chatterjee MD X-Ray 10/02/16 08:00 IMPRESSION: Persistent mildly distended small bowel loops. Passage of contrast into the colon indicates incomplete obstruction D/ / Mario Norton MD / Mario Norton MD Interpreting Provider: Mario Norton MD Retroperitoneum Ultrasound 10/03/16 14:30 IMPRESSION: 1. Mild right renal pelvicaliectasis without evidence of silvano hydronephrosis, improved compared to the CT of October 01, 2016. Right-sided ureteral jets at the distal tip of the ureteral stent could not convincingly be identified. D/ / 10/03/2016 17:40:44 Ye Correia MD / [email or web address] Interpreting Provider: Ye Correia MD Laboratory Tests 10/03/16 05:19 Est GFR (Non-Af Amer) > 60 - Imaging EKG: image reviewed (86bpm sR w/occas Supraventricular premature complexes. Inf NH probably old.) Anesthesia Exam Vital Signs Temp Pulse Resp BP Pulse Ox 10/04/16 00:16 98.6 F 74 14 165/84 98 10/03/16 22:20 160/90 96 10/03/16 20:19 174/87 10/03/16 20:18 98.8 F 72 16 185/73 92 L 10/03/16 15:50 96.8 F L 72 14 161/95 97 10/03/16 10:47 97.5 F L 71 18 172/94 95 10/03/16 06:59 97.3 F L 67 14 159/86 94 L 10/03/16 05:36 98.1 F 70 14 162/88 97 10/03/16 03:30 97.7 F 75 16 153/81 95 Intake and Output 10/03/16 10/03/16 10/04/16 15:59 23:59 07:59 Intake Total 240 / 240 60 / 60 Output Total 375 / 375 1360 / 1360 200 / 200 Balance -135 / -135 -1300 / -1300 -200 / -200 Intake: Oral 240 / 240 60 / 60 Output: Urine 375 / 375 900 / 900 200 / 200 Urine/Stool Mix 400 / 400 Wound Drainage 60 / 60 ayala 60 / 60 Other: Meal Lunch Dinner Percent of Meal Consumed 0% 50% Stool Size Moderate Moderate Stool Consistency liquid loose Stool Characteristics Normal for Patient Stool Color Brown Brown # Bowel Movements 1 Height: 6'2" Weight: 201# BMI = 26 Anesthesia Assess/Plan ASA Score: 3 (HTN, BPH, active SBO, [place]) Anesthetic Plan: General Monitoring Plan: Standard Monitors Recovery Plan: PACU Anes Supervising Prov Stmt: Surgery Cancelled per Dr. Harris on 10/04/16 - MD Lucio
[2016-10-04] MEDS: *HR* Heparin 5,000 UNIT/ML VIAL SQ SCH (06:25)
--- NOTE | 2016-10-04 07:18 | Urology Progress Note ---
Date of Encounter: 10/04/16 Time of Encounter: 07:16 - Assessment and Plan (1) Right distal ureteral calculus Current Visit: Yes Status: Acute Assessment and plan: 80 year old man with some right flank pain after right ureteral stent removal. He is feeling well today. Renal ultrasound reviewed. Still with mild pelvicaliectasis. It seems to be improving. There is no stent in the ureter despite the read. Will cancel surgery. Will restart diet. Okay to d/c home from standpoint when okay per General Surgery. Progress Note Narrative: 80 year old man with mild right hydronephrosis after stent removal. POD #5 from right ureteroscopy, stone extraction, and stent. He is feeling well today. No more flank pain overnight. Objective Initial Vital Signs Temp Pulse Resp BP Pulse Ox 97.6 F 101 17 90/61 87 L 09/28/16 18:48 09/28/16 18:48 09/28/16 18:48 09/28/16 18:48 09/28/16 18:48 - General physical appearance Present: well developed, well nourished, no distress - Respiratory Present: normal respiratory effort - Abdomen Present: soft - Labs 10/03/16 05:19 10/03/16 05:19 - VTE Documentation of Mechanical Device: Intermittent pneumatic compression device Consult Discharge Plan - Plan Referrals: Jerel Mallory DO [Primary Care Provider] -
[2016-10-04 10:39] VITALS: BP 150/83
--- NOTE | 2016-10-04 14:40 | Discharge Summary ---
<Frdedy Zeng - Last Filed: 10/04/16 14:03> Date of Encounter: 10/04/16 Time of Encounter: 13:45 - Discharge Diagnosis (1) Right distal ureteral calculus Priority: Primary Status: Acute (2) Small bowel obstruction Priority: Secondary Status: Acute (3) HTN (hypertension) Priority: Secondary Status: Acute Qualifiers: Hypertension type: essential hypertension Qualified Code(s): I10 - Essential (primary) hypertension (4) Acute kidney injury Priority: Secondary Status: Resolved (5) BPH (benign prostatic hyperplasia) Priority: Secondary Status: Chronic Qualifiers: Prostatic enlargement morphology: unspecified morphology Lower urinary tract symptom presence: presence of symptoms unspecified Qualified Code(s): N40.0 - Benign prostatic hyperplasia without lower urinary tract symptoms - Discharge Medications Prescriptions: Ibuprofen [Motrin] 600 mg PO Q8HR PRN #30 tab PRN Reason: Pain Home Medications: Lisinopril [Zestril] 5 mg PO DAILY 09/28/16 [History] Ondansetron HCl [Zofran] 4 mg PO Q4H PRN 09/28/16 [History] Oxycodone HCl/Acetaminophen [Percocet 5-325 mg Tablet] 1 each PO Q4H PRN [History] Tamsulosin [Flomax] 0.4 mg PO DAILY 09/28/16 [History] Vit C/Vit E/Lutein/Min/[place]-3 [Ocuvite Softgel] 1 each PO DAILY 09/28/16 [ History] Ibuprofen [Motrin] 600 mg PO Q8HR PRN #30 tab 10/04/16 [Rx] Allergies/Adverse Reactions: Allergies No Known Allergies Allergy (Verified 09/28/16 18:53) General Surgery Exam Initial Vital Signs Temp Pulse Resp BP Pulse Ox 97.6 F 101 17 90/61 87 L 09/28/16 18:48 09/28/16 18:48 09/28/16 18:48 09/28/16 18:48 09/28/16 18:48 - General physical appearance well developed, well nourished, no distress - Eyes normal ocular movement - ENT normal mucosa, atraumatic, normocephalic - Neck trachea midline - Respiratory normal respiratory effort, clear to auscultation - Cardiovascular Cardiovascular exam: Present: RRR - Abdomen Abdomen general surgery: Present: bowel sounds present, soft, non tender - Integumentary Integumentary general surgery: Present: warm and dry, no abnormal pigmentation - Neurologic Present: CN 2-12 grossly intact - Musculoskeletal Present: normal gait, normal posture - Psychiatric Psychiatric general surgery: Present: A&Ox3, speech is normal, memory intact Date of admission: 09/29/16 08:57 Primary care physician: Jerel Mallory Consults: 09/29/16 08:59 Consult to Urology [CONS] Routine Consulting Provider: Urology Christa Reason for Consult: right ureter stone/hydronephrosis, perninephric stranding Time Notified: 09:00 Call Completed: Yes Discharging clinician: Amy Kolb Anticipated date of discharge: 10/04/16 - Patient Status Disposition: Home, Self-Care Condition: Good Functional capacity at discharge: independent ambulation Overall status at discharge: patient is progressing back to baseline - Discharge Instructions Follow Up With: Ilya Garay MD [Partnered Physician] - 10/18/16 1:45 pm - Diet and Activity Activity: increase activity as tolerated Diet: advance to your usual diet - Hospital Course Hospital course: Mr. Wang is a 80 year old male presented to the ED for abdominal pain since , originally seen at [facility] and discharged. He returned on 09/28/16 for continued R flank pain extending into his back. CT done on admission suggestive of partial SBO and noted 2mm stone in distal R ureter with mild right hydroureteronephrosis. With worsening Cr and GFR, Dr. Garay performed Right ureteroscopy with basket stone extraction and right ureteral stent placement on 09/29/16. Patient accidentally pulled on the strings, removing the stent on ; urology discussed replacement of stent, which patient did not want at that time. With concern for ileus vs SBO, patient was on bowel rest with NG placed and NPO. NG removed and started on clear liquids on 10/02/16 when patient began having bowel movements. Patient advanced to full liquids, currently tolerating soft diet and having both flatus and bowel movements. Patient said his pain is completely resolved at this time and Urology agreed patient okay to discharge. - Time Spent with Patient Total time spent providing and/or coordinating discharge services: Labs on day of discharge: Labs from last 24 hours 10/04/16 05:51 POC Glucose 93 H - Impressions ITS Impressions KUB X-Ray 09/29/16 09:41 IMPRESSION: Gastric tube in the stomach D/ / Mario Norton MD / Mario Norton MD Interpreting Provider: Mario Norton MD X-Ray 09/30/16 12:15 IMPRESSION: Enteric tube looped within the fundus of the stomach with the distal tip terminating in the proximal stomach. Hiatal hernia. D/ / 09/30/2016 13:52:20 Jesus Grover MD / radha Interpreting Provider: Jesus Grover MD Abdomen/Pelvis CT 10/01/16 09:30 IMPRESSION: Moderate right-sided hydronephrosis with extensive right perinephric and periureteral inflammatory changes slightly increased since prior examination. Passage of a distal right ureteral obstructing stone and a nonobstructing right renal stone since prior examination. Resolution of previously seen mild small bowel dilatation. D/ / 10/01/2016 11:38:11 Juwan Chatterjee MD / Charlette Acuña Interpreting Provider: Juwan Chatterjee MD X-Ray 10/01/16 14:21 IMPRESSION: Nonspecific bowel gas pattern without evidence of obstruction. Contrast and stool throughout the colon. D/ / Juwan Chatterjee MD / Juwan Chatterjee MD Interpreting Provider: Juwan Chatterjee MD X-Ray 10/01/16 15:20 IMPRESSION: Contrast has passed through the small bowel into the large bowel indicating no evidence of complete bowel obstruction. D/ / 10/01/2016 19:02:02 Roxy Angelo MD / jett Interpreting Provider: Roxy Angelo MD X-Ray 10/02/16 08:00 IMPRESSION: Persistent mildly distended small bowel loops. Passage of contrast into the colon indicates incomplete obstruction D/ / Mario Norton MD / Mario Norton MD Interpreting Provider: Mario Norton MD Retroperitoneum Ultrasound 10/03/16 14:30 IMPRESSION: 1. Mild right renal pelvicaliectasis without evidence of silvano hydronephrosis, improved compared to the CT of October 01, 2016. Right-sided ureteral jets at the distal tip of the ureteral stent could not convincingly be identified. D/ / 10/03/2016 17:40:44 Ye Correia MD / bcarter Interpreting Provider: Ye Correia MD <Amy Kolb - Last Filed: 10/04/16 16:13> - Discharge Diagnosis (1) BPH (benign prostatic hyperplasia) Status: Chronic Qualifiers: Prostatic enlargement morphology: unspecified morphology Lower urinary tract symptom presence: presence of symptoms unspecified Qualified Code(s): N40.0 - Benign prostatic hyperplasia without lower urinary tract symptoms (2) HTN (hypertension) Status: Acute Qualifiers: Hypertension type: essential hypertension Qualified Code(s): I10 - Essential (primary) hypertension (3) Small bowel obstruction Priority: Primary Status: Acute (4) Acute kidney injury Priority: Primary Status: Resolved (5) Hydronephrosis Priority: Primary Status: Acute Qualifiers: Hydronephrosis type: unspecified Qualified Code(s): N13.30 - Unspecified hydronephrosis General Surgery Exam Initial Vital Signs Temp Pulse Resp BP Pulse Ox 97.6 F 101 17 90/61 87 L 09/28/16 18:48 09/28/16 18:48 09/28/16 18:48 09/28/16 18:48 09/28/16 18:48 Date of admission: 09/29/16 08:57 Primary care physician: Jerel Mallory Consults: 09/29/16 08:59 Consult to Urology [CONS] Routine Consulting Provider: Urologina Goodwin Reason for Consult: right ureter stone/hydronephrosis, perninephric stranding Time Notified: 09:00 Call Completed: Yes - Hospital Course Hospital course: Mr. Wang is a 80 year old male - Time Spent with Patient Total time spent providing and/or coordinating discharge services: Labs on day of discharge: Labs from last 24 hours 10/04/16 09/29/16 05:51 15:09 POC Glucose 93 H Number of Stones 1 Stone Size 1 TO 4 Stone Mass 10 Stone Description SEE NOTE Stone Composition SEE NOTE - Impressions ITS Impressions KUB X-Ray 09/29/16 09:41 IMPRESSION: Gastric tube in the stomach D/ / Mario Norton MD / Mario Norton MD Interpreting Provider: Mario Norton MD X-Ray 09/30/16 12:15 IMPRESSION: Enteric tube looped within the fundus of the stomach with the distal tip terminating in the proximal stomach. Hiatal hernia. D/ / 09/30/2016 13:52:20 Jesus Grover MD / radha Interpreting Provider: Jesus Grover MD Abdomen/Pelvis CT 10/01/16 09:30 IMPRESSION: Moderate right-sided hydronephrosis with extensive right perinephric and periureteral inflammatory changes slightly increased since prior examination. Passage of a distal right ureteral obstructing stone and a nonobstructing right renal stone since prior examination. Resolution of previously seen mild small bowel dilatation. D/ / 10/01/2016 11:38:11 Juwan Chatterjee MD / Charlette Acuña Interpreting Provider: Juwan Chatterjee MD X-Ray 10/01/16 14:21 IMPRESSION: Nonspecific bowel gas pattern without evidence of obstruction. Contrast and stool throughout the colon. D/ / Juwan Chatterjee MD / Juwan Chatterjee MD Interpreting Provider: Juwan Chatterjee MD X-Ray 10/01/16 15:20 IMPRESSION: Contrast has passed through the small bowel into the large bowel indicating no evidence of complete bowel obstruction. D/ / 10/01/2016 19:02:02 Roxy Angelo MD [facility] [place] Interpreting Provider: Roxy Angelo MD X-Ray 10/02/16 08:00 IMPRESSION: Persistent mildly distended small bowel loops. Passage of contrast into the colon indicates incomplete obstruction D/ / Mario Norton MD / Mario Norton MD Interpreting Provider: Mario Norton MD Retroperitoneum Ultrasound 10/03/16 14:30 IMPRESSION: 1. Mild right renal pelvicaliectasis without evidence of silvano hydronephrosis, improved compared to the CT of October 01, 2016. Right-sided ureteral jets at the distal tip of the ureteral stent could not convincingly be identified. D/ / 10/03/2016 17:40:44 Ye Correia MD / radha Interpreting Provider: Ye Correia MD - Attending Attestation I examined this patient and my medical decision-making was reviewed with the HOTEL HOUSEKEEPER/PA/Advanced Practice Nurse/Resident Physician. I agree with the documented findings, disposition and treatment plan as described except to the extent set forth below.
== END 2016-10-04 16:15 | disposition home or self-care (01) | DRG 669 ==
LOC: EMEROO 18:21 → 3ANU 18:21
PROVIDERS: ADMIT Surgery; ATTEND Surgery